=== PATIENT | male | born 1940 | race Caucasian/White ===

== ENCOUNTER 2016-04-03 22:18 | Inpatient (IN) | payer MEDICARE ==
[~2016-04-03 22:18] MED LIST: CIPR-9 PO; LISI-515 PO; LITH300C2 PO; LORA-373 PO; OXYGENTANK NAS.CANULA
[2016-04-03] MEDS ORDERED: SODIUM CHLOR 0.9% 1000 ML INJ 1,000 ML IV ONE ×3 (22:39→23:45)
--- NOTE | 2016-04-03 22:51 | RADRPT ---
EXAM DATE/TIME: 04/03/2016 22:36 [facility] COMPARISON: No previous studies available for comparison. INDICATIONS : Stroke alert; altered mental status. RADIATION DOSE: 56.35 CTDIvol (mGy) This report was called by Dr. Causey to Dr. Gabriel at 10: 50 PM MEDICAL HISTORY : Non-responsive. SURGICAL HISTORY : Non-responsive. ENCOUNTER: Initial ACUITY: 1 day PAIN SCALE: Non-responsive LOCATION: cranial TECHNIQUE: Multiple contiguous axial images were obtained of the head. Using automated exposure control and adj ustment of the mA and/or kV according to patient size, radiation dose was kept as low as reasonably a chievable to obtain optimal diagnostic quality images. FINDINGS: CEREBRUM: The ventricles are normal for age. No evidence of midline shift, mass lesion, hemorrhage or acute in farction. No extra-axial fluid collections are seen. POSTERIOR FOSSA: The cerebellum and brainstem are intact. The 4th ventricle is midline. The cerebellopontine angle i s unremarkable. EXTRACRANIAL: The visualized portion of the orbits is intact. SKULL: The calvaria is intact. No evidence of skull fracture. CONCLUSION: Normal examination for a patient of this age. Harrison Causey MD on April 03, 2016 at 22:48 Board Certified Radiologist. This report was verified electronically.
[2016-04-03 22:52] VITALS: PULSE 77; RESP 18; O2SAT 95
[2016-04-03 23:08] LABS: AUTOMATED NEUTROPHIL # 14.4 TH/MM3 (1.8-7.7); BASOPHIL # 0.2 TH/MM3 (0-0.2); BASOPHIL % 1.3 % (0.0-2.0); EOSINOPHIL # 0.2 TH/MM3 (0-0.4); EOSINOPHIL % 1.4 % (0.0-4.0); HEMATOCRIT 42.8 % (39.0-51.0); HEMO FLAGS DIFF FINAL; LYMPHOCYTE # 1.2 TH/MM3 (1.0-4.8); MEAN CELL VOLUME 97.4 FL (80.0-100.0); MEAN CORPUSCULAR HEMOGLOBIN 31.6 PG (27.0-34.0); MEAN CORPUSCULAR HGB CONC 32.4 % (32.0-36.0); MONO % 4.8 % (0.0-8.0); NEUT % 85.5 % (16.0-70.0); PLATELET COUNT 516 TH/MM3 (150-450); RED BLOOD COUNT 4.39 MIL/MM3 (4.50-5.90); RED CELL DISTRIBUTION WIDTH 15.3 % (11.6-17.2); WHITE BLOOD COUNT 16.9 TH/MM3 (4.0-11.0)
[2016-04-03 23:09] LABS: I-STAT POTASSIUM 5.4 MMOL/L (3.5-4.9)
[2016-04-03 23:33] LABS: APTT (PATIENT) 24.6 SEC (24.3-30.1); PROTHROMBIN TIME - PATIENT 10.6 SEC (9.8-11.6)
--- NOTE | 2016-04-03 23:38 | PD ---
HPI Chief Complaint: Stroke Alert Time Seen by Provider: 22:39 Travel History International Travel<30 days: No Contact w/Intl Traveler<30days: No History of Present Illness HPI The patient arrives as a stroke alert. [facility] developed tremors, sweating palms and a flushed face. He also had a grand mal and responded "yes" when asked if he wanted water. He is unable to suck water through a straw. He was unable to hold a conversation however was able to answer yes and no. Nurse from the facility called the doctor in charge and EMS was activated. Upon arrival to the ER the patient was tremulous generally. EMS notes the patient had a supratherapeutic lithium level obtained 2 days prior. He has been off lithium since then. The patient denies pain in the ER. His NIH stroke scale is considered to be 0 as the presentation is considered to be not in keeping with an acute [employer] infarct or bleed. Time of onset of alleged altered mental status was about 2:45 minutes prior to ER arrival. PFSH Past Medical History Cardiovascular Problems: No Diminished Hearing: No Genitourinary: No Musculoskeletal: No Neurologic: No Psychiatric: Yes (patient states he takes bipolar meds ) Reproductive: No Respiratory: No Social History Alcohol Use: No Tobacco Use: No Substance Use: No Allergies-Medications (Allergen,Severity, Reaction): Coded Allergies: Penicillin (Unverified Adverse Reaction, Mild, 04/04/16) Told since he had polio as a kid and exposed to penicillin multiple times, should not have penicillin later in life. Denies SOB/Rash/Swelling. Reported Meds & Prescriptions Reported Meds & Active Scripts Active Reported Metronidazole 500 Mg Tab 500 Mg PO BID Duoneb (Ipratropium-Albuterol Neb) 0.5-2.5 Mg/3 Ml Neb 1 Nebule INH Q6HR NEB Ciprofloxacin (Ciprofloxacin HCl) 500 Mg Tab 500 Mg PO BID Lisinopril 20 Mg Tab 20 Mg PO DAILY Boissevain Carbonate 300 Mg Tab 300 Mg PO TID ON HOLD due to Levels Tamsulosin (Tamsulosin HCl) 0.4 Mg Cap 0.4 Mg PO HS Robitussin Cough Chest Congestion (Dextromethorphan-Guaifenesin) 10-200 Mg Cap 1 Cap PO Q4H PRN Breo Ellipta Inh (Fluticasone/Vilanterol) 100-25 Mcg/Act Inh 1 Puff INH DAILY Use daily at the same time. Nicoderm CQ Patch (Nicotine) 21 Mg/24 Hr Patch 21 Mg T-DERMAL DAILY Review of Systems Except as stated in HPI: all other systems reviewed are Neg Physical Exam Narrative GENERAL: 75-year-old male, generalized fine tremor involving the facial muscles the extremities both proximally and distally in a symmetric fashion SKIN: Warm and dry. HEAD: Atraumatic. Normocephalic. EYES: Pupils equal and round. No scleral icterus. No injection or drainage. ENT: No nasal bleeding or discharge. Mucous membranes pink and moist. NECK: Trachea midline. No JVD. CARDIOVASCULAR: Regular rate and rhythm. No murmur appreciated. RESPIRATORY: No accessory muscle use. Clear to auscultation. Breath sounds equal bilaterally. GASTROINTESTINAL: Abdomen soft, non-tender, nondistended. Hepatic and splenic margins not palpable. MUSCULOSKELETAL: No obvious deformities. No clubbing. No cyanosis. No edema. NEUROLOGICAL: The patient can read sentences. He can identify objects. He can repeat NIH stroke scale phrases. Initially the patient was unable to elevate the legs. The patient has some difficulty elevating his feet off the bed however has flexed his knees and rolled into the lateral recumbent position upon reassessment. PSYCHIATRIC: Difficult to interpret in the setting of generalized tremor. The patient denies pain and is quite cooperative. Data Data Last Documented VS Vital Signs Date Time Temp Pulse Resp B/P Pulse Ox O2 Delivery O2 Flow Rate FiO2 04/04/16 00:35 84 18 143/67 97 Nasal Cannula [address] Brain W/O Iv Contrast(Rout) (04/03/16 ) Diet Npo (04/04/16 Breakfast) Activity Bed Rest (04/03/16 ) Electrocardiogram (04/03/16 ) I-Stat Creatinine (04/03/16 22:39) I-Stat Profile (04/03/16 22:39) Prothrombin Time / Inr (Pt) (04/03/16 22:39) Act Partial Throm Time (Ptt) (04/03/16 22:39) Complete Blood Count With Diff (04/03/16 22:39) Fibrinogen (04/03/16 22:39) Ua Includes Microscopic (04/03/16 22:39) Type And Screen (04/03/16 22:39) Consult Neurology (04/03/16 ) Blood Glucose (04/03/16 22:39) Ecg Monitoring (04/03/16 22:39) Neuro Checks Q2HX12,Q4H (04/03/16 22:39) Nursing Bedside Swallow Assess .ONCE (04/03/16 22:39) Iv Access Insert/Monitor (04/03/16 22:39) NPO (04/03/16 22:39) Oximetry (04/03/16 22:39) Oxygen Administration (04/03/16 22:39) Sodium Chlor 0.9% 1000 Ml Inj (Ns 1000 M (04/03/16 22:39) Resp Oxygen Shane C Titrat 1-4 L (04/03/16 22:39) Cath For Specimen (04/03/16 22:39) Comprehensive Metabolic Panel (04/03/16 22:47) Boissevain (Li) (04/03/16 22:47) Drug Screen, Random Urine (04/03/16 22:47) Alcohol (Ethanol) (04/03/16 22:47) Call Poison Control (04/03/16 23:01) (Hub Use Only)Inp Phy Cons/Ref (04/03/16 ) Sodium Chlor 0.9% 1000 Ml Inj (Ns 1000 M (04/03/16 23:45) Sodium Chlor 0.9% 1000 Ml Inj (Ns 1000 M (04/03/16 23:45) Urinary Catheter Insert/Apply (04/03/16 23:38) Urinalysis - C+S If Indicated (04/04/16 00:08) Chest, Single Ap (04/04/16 ) Creatine Kinase (Cpk) (04/03/16 22:47) Troponin I (04/03/16 22:47) Arterial Blood Gas (Abg) (04/04/16 ) Basic Metabolic Panel (Bmp) (04/04/16 01:53) Boissevain (Li) (04/04/16 01:54) Admit Order (Ed Use Only) (04/04/16 02:07) Labs Laboratory Tests Test 04/03/16 04/03/16 04/03/16 04/04/16 21:05 22:40 23:50 02:05 Prothrombin Time 10.6 SEC Prothromb Time International 1.0 RATIO Ratio Activated Partial 24.6 SEC Thromboplast Time Fibrinogen 500 mg/dL Bo[place]vain Level 2.0 MEQ/L 1.9 MEQ/L Sodium Level 144 MEQ/L 145 MEQ/L Potassium Level 4.9 MEQ/L 4.5 MEQ/L Chloride Level 114 MEQ/L 115 MEQ/L Carbon Dioxide Level 22.8 MEQ/L 21.8 MEQ/L Anion Gap 7 MEQ/L 8 MEQ/L Blood Urea Nitrogen 39 MG/DL 41 MG/DL Creatinine 2.57 MG/DL 2.46 MG/DL Estimat Glomerular Filtration 25 ML/MIN 26 ML/MIN Rate Random Glucose 106 MG/DL 110 MG/DL Calcium Level 9.8 MG/DL 9.2 MG/DL Total Bilirubin 0.4 MG/DL Aspartate Amino Transf 8 U/L (AST/SGOT) Alanine Aminotransferase 29 U/L (ALT/SGPT) Alkaline Phosphatase 182 U/L Total Creatine Kinase 39 U/L Troponin I LESS THAN 0.02 NG/ML Total Protein 7.9 GM/DL Albumin 3.4 GM/DL Ethyl Alcohol Level LESS THAN 3 MG/DL Blood Type A NEGATIVE Antibody Screen NEGATIVE Blood Bank Comment White Blood Count 16.9 TH/MM3 Red Blood Count 4.39 MIL/MM3 Hemoglobin 13.9 GM/DL Bedside Hemoglobin 13.9 G/DL Hematocrit 42.8 % Bedside Hematocrit 41.0 % Mean Corpuscular Volume 97.4 FL Mean Corpuscular Hemoglobin 31.6 PG Mean Corpuscular Hemoglobin 32.4 % Concent Red Cell Distribution Width 15.3 % Platelet Count 516 TH/MM3 Mean Platelet Volume 8.7 FL Neutrophils (%) (Auto) 85.5 % Lymphocytes (%) (Auto) 7.0 % Monocytes (%) (Auto) 4.8 % Eosinophils (%) (Auto) 1.4 % Basophils (%) (Auto) 1.3 % Neutrophils # (Auto) 14.4 TH/MM3 Lymphocytes # (Auto) 1.2 TH/MM3 Monocytes # (Auto) 0.8 TH/MM3 Eosinophils # (Auto) 0.2 TH/MM3 Basophils # (Auto) 0.2 TH/MM3 CBC Comment DIFF FINAL Differential Comment Bedside Sodium 141 MMOL/L Bedside Potassium 5.4 MMOL/L Bedside Chloride 119 MMOL/L Bedside Blood Urea Nitrogen 54 MG/DL Bedside Creatinine 2.4 MG/DL Bedside Glucose 108 MG/DL Urine Color YELLOW Urine Turbidity CLEAR Urine pH 6.5 Urine Specific [place] 1.009 Urine Protein NEG mg/dL Urine Glucose (UA) NEG mg/dL Urine Ketones NEG mg/dL Urine Occult Blood MOD Urine Nitrite NEG Urine Bilirubin NEG Urine Urobilinogen LESS THAN 2.0 MG/DL Urine Leukocyte Esterase NEG Urine RBC 2 /hpf Urine WBC 2 /hpf Urine Bacteria RARE /hpf Urine Hyaline Casts 7 /lpf Microscopic Urinalysis Comment CULT NOT INDICATED Urine Opiates Screen NEG Urine Barbiturates Screen NEG Urine Amphetamines Screen NEG Urine Benzodiazepines Screen NEG Urine Cocaine Screen NEG Urine Cannabinoids Screen NEG MDM Medical Screen Exam Complete: Yes Emergency Medical Condition: Yes Medical Record Reviewed: Yes Differential Diagnosis Altered mental status due to metabolic abnormality/electrolyte imbalance, polypharmacy/toxicology, possible lithium overdose, infectious state Narrative Course CBC & BMP Diagram 04/03/16 21:05 04/03/16 22:40 04/04/16 02:05 AST 8 Alk Phos 182 Tn < 0.02 Li 2.0 ABG 7.6//18 BE -6.0 d/w poison control. NS started. No focal deficit was identified on initial physical exam. Subsequent physical exams revealed no focal deficit. In this setting stroke is considered less likely. Every 2 hours lithium checks recommended by poison control. 2-3 cc per KG per hour normal saline recommended by poison control. Patient reports marginal improvement after IV hydration. Case d/w Dr Alex. Critical Care Narrative Aggregate critical care time was 35 minutes. Time to perform other separately billable procedures was not included in the critical care time. My time did not include minutes spent treating any other patients simultaneously or on activities that did not directly contribute to the patient's treatment. The services I provided to this patient were to treat and/or prevent clinically significant deterioration that could result in: Cardiopulmonary arrest, permanent organ injury I provided critical care services requiring my management, as noted below: Chart data review, documentation time, medication orders and management, vital sign assessments/reviewing monitor data, ordering and reviewing lab tests, ordering and interpreting/reviewing x-rays and diagnostic studies, care of the patient and discussion of the patient with the admitting physicians.Aggregate critical care Stroke Alert NIHSS NIH Stroke Scale Result: 0 NIHSS Time Completed: 22:42 Thrombolytic Contraindications Contraindications Comment: Etiology considered less likely CVA. Diagnosis Diagnosis: Primary Impression: Boissevain toxicity Qualified Code: T56.891A - Boissevain toxicity, accidental or unintentional, initial encounter Additional Impressions: AIWLDA (acute kidney injury) Altered mental status Qualified Code: R41.82 - Altered mental status, unspecified altered mental status type Admitting Physician Requests: Admit Miguel A Gabriel MD Apr 03, 2016 23:38
[2016-04-04] VITALS (16 sets, daily range): BP systolic 91–152; BP diastolic 44–77; PULSE 72–93; RESP 14–20; TEMP 97.9–98.4; O2SAT 95–98
[2016-04-04 00:18] LABS: BACTERIA, URINE RARE /hpf; BLOOD, URINE MOD (NEG); COMMENT (UR) CULT NOT INDICATED; GLUCOSE,URINE NEG (NEG); HYALINE CAST, URINE 7 /lpf (RARE); KETONE, URINE NEG (NEG); NITRITE,URINE NEG (NEG); PH, URINE 6.5 (5.0-8.5); URINE COLOR YELLOW (YELLW/STRAW)
[2016-04-04 00:25] LABS: AMPHETAMINE, URINE NEG (NEG); BARBITURATES, URINE NEG (NEG); COCAINE, URINE NEG (NEG)
--- NOTE | 2016-04-04 00:53 | RADRPT ---
EXAM DATE/TIME: 04/04/2016 00:25 [facility] COMPARISON: CHEST SINGLE AP, March 14, 2016, 11:37. INDICATIONS : Fever. Stroke Alert. MEDICAL HISTORY : None. SURGICAL HISTORY : None. ENCOUNTER: Initial ACUITY: 1 day PAIN SCORE: Non-responsive. LOCATION: Bilateral chest FINDINGS: A single view of the chest demonstrates the lungs to be symmetrically aerated without evidence of mas s, infiltrate or effusion. The cardiomediastinal contours are unremarkable. Osseous structures are intact. CONCLUSION: The lungs are clear. Mayank Ennis MD on April 04, 2016 at 0:52 Board Certified Radiologist. This report was verified electronically.
[2016-04-04 01:09] LABS: BLOOD UREA NITROGEN 39 MG/DL (7-18); GLOMERULAR FILTRATION RATE 25 ML/MIN (>89)
[2016-04-04 01:10] LABS: ALKALINE PHOSPHATASE 182 U/L (45-117); ALT (GPT) 29 U/L (12-78); AST (GOT) 8 U/L (15-37); POTASSIUM 4.9 MEQ/L (3.5-5.1); SODIUM (NA) 144 MEQ/L (136-145); TOTAL BILIRUBIN ADULT 0.4 MG/DL (0.2-1.0)
[2016-04-04] MEDS ORDERED: IPRASOL INH (01:13)
[2016-04-04] MEDS ORDERED: FLUT1INH INH (01:13)
[2016-04-04] MEDS ORDERED: LITH300T3 PO (01:13)
[2016-04-04] MEDS ORDERED: DEXT1CAP5 PO (01:13)
[2016-04-04] MEDS ORDERED: LISI-515 PO (01:13)
[2016-04-04] MEDS ORDERED: TAMS0.4C4 PO (01:13)
[2016-04-04] MEDS ORDERED: NICO21DI6 T-DERMAL (01:13)
[2016-04-04] MEDS ORDERED: METR500T10 PO (01:13)
[2016-04-04] MEDS ORDERED: CIPR500T2 PO (01:13)
[2016-04-04 02:42] LABS: BICARBONATE 21.8 MEQ/L (21.0-32.0); POTASSIUM 4.5 MEQ/L (3.5-5.1)
[2016-04-04 02:42] LABS: BLOOD GAS HCO3 18 mmol/L (22-26); BLOOD GAS METHEMOGLOBIN 1.8 % (0-2); BLOOD GAS O2 HGB SATURATION 90 % (90-100); BLOOD GAS OXYGEN CONTENT 16.9 Vol % (12.0-20.0); BLOOD GAS PCO2 34 mmHg (38-42); BLOOD GAS PO2 67 mmHG (61-120); BLOOD GAS TOTAL HGB 13.3 G/DL (12.0-16.0); CRITICAL VALUE NO; DRAW SITE RT RADIAL; LITER FLOW 2 L/M; NUMBER OF ARTERIAL PUNCTURES 1; OXYGEN DEVICE NASAL CANNULA; STAT YES; TEMP CORR TO 98.6; ULNAR PULSE PRESENT
[2016-04-04 02:44] LABS: CREATINE KINASE 39 U/L (39-308)
[2016-04-04 02:45] LABS: CHLORIDE 114 MEQ/L (98-107)
[2016-04-04 02:46] LABS: ANION GAP 7 MEQ/L (5-15); BICARBONATE 22.8 MEQ/L (21.0-32.0)
[2016-04-04] MEDS: SODIUM CHLOR 0.9% 1000 ML INJ 1,000 ML IV SCH ×2 (03:38→13:58)
[2016-04-04] MEDS ORDERED: MISCELLANEOUS NURSING INFORMATION XX SCH (03:45)
[2016-04-04] MEDS ORDERED: GLUCAGON 1 MG/ML VIAL OTHER PRN (03:45)
[2016-04-04] MEDS ORDERED: DEXTROSE 50% IN WATER 50 ML VIAL(D50) IV PUSH PRN (03:45)
[2016-04-04] MEDS ORDERED: SODIUM CHLORIDE 0.9% FLUSH 5 ML FLUSH IV FLUSH PRN (03:45)
[2016-04-04] MEDS ORDERED: CHLORHEXIDINE GLUCONATE 2 % 1 PACK (2 CLOTHS) TOP PRN (03:45)
[2016-04-04] MEDS ORDERED: ONDANSETRON HCL 4 MG/2 ML VIAL IV PRN (03:45)
[2016-04-04] MEDS ORDERED: RESP: ALBUTEROL 2.5 MG/IPRATROPIUM 0.5 MG NEB (PRN) INH (03:45)
[2016-04-04] MEDS: CHLORHEXIDINE GLUCONATE 2 % 1 PACK (2 CLOTHS) TOP SCH (04:00)
[2016-04-04] MEDS ORDERED: SODIUM CHLOR 0.9% 1000 ML INJ 1,000 ML IV ONE (04:00)
--- NOTE | 2016-04-04 04:10 | HHI.HP ---
HPI Service Critical Care Medicine Primary Care Physician [facility] Admission Diagnosis AMS, Tremor, Li Toxicity, AWILDA Diagnosis: Travel History International Travel<30 Days: No Contact w/Intl Traveler <30 Da: No History of Present Illness This is an elderly gentleman that presented from a intermediate facility with redness/facial flushing, and tremors. On presentation to the ED,initially the patient was not able to respond to questions or be conversant. He was unable to hold a conversation however was able to answer yes and no. ASIS past medical history is significant for bipolar disorder .Upon arrival to the ER the patient was tremulous. EMS notes the patient had a supratherapeutic lithium level obtained 2 days prior. His lithium placed on hold. Imaging studies and laboratory specimens were obtained. Critical care medicine was consulted for management and treatment. History PFSH Past Medical History Cardiovascular Problems: No Diminished Hearing: No Genitourinary: No Musculoskeletal: No Neurologic: No Psychiatric: Yes (patient states he takes bipolar meds ) Reproductive: No Respiratory: No Social History Alcohol Use: No Tobacco Use: No Substance Use: No Allergies-Medications Allergies-Medications (Allergen,Severity, Reaction): Coded Allergies: Penicillin (Unverified Adverse Reaction, Mild, 03/14/16) Told since he had polio as a kid and exposed to penicillin multiple times, should not have penicillin later in life. Denies SOB/Rash/Swelling. Reported Meds & Prescriptions Reported Meds & Active Scripts Active Lorazepam 0.5 Mg Tab 0.5 Mg PO BID PRN Lisinopril 20 Mg Tab 20 Mg PO DAILY Oxygen tank (Oxygen) 1 Ea Tank 2 Liter RADHA.CANULA CONTINUOUS Oxygen Concentrator Portable Gaseous 2 L/min via Nasal Cannula Continuous For 99 months Cipro (Ciprofloxacin HCl) 500 Mg Tab 500 Mg PO Q12HR Take twice per day for 14 days. No antacids, PPIs, milk or milk products for an hour before or after Cipro. Reported Kennard Carbonate 300 Mg Cap 300 Mg PO TID ROS Review of Systems Except as stated in HPI: all other systems reviewed are Neg Physical Exam Vital Signs Vital Signs Date Time Temp Pulse Resp B/P Pulse Ox O2 Delivery O2 Flow Rate FiO2 04/04/16 02:42 80 18 132/60 98 Nasal Cannula 2 04/04/16 00:35 84 18 143/67 97 Nasal Cannula 2 04/03/16 23:13 79 18 99 Nasal Cannula 2 04/03/16 22:58 98 Nasal Cannula 2 04/03/16 22:52 77 18 95 Nasal Cannula 2 Physical Exam GENERAL: Elderly gentleman lying semirecumbent in bed flushed face and tremors in both upper and lower extremities. SKIN: Hot and dry. HEAD: Atraumatic. Normocephalic. EYES: Pupils equal and round. No scleral icterus. No injection or drainage. ENT: No nasal bleeding or discharge. Mucous membranes pink and moist. NECK: Trachea midline. No JVD. CARDIOVASCULAR: Normal rate, regular rhythm. RESPIRATORY: No accessory muscle use. Clear to auscultation. Breath sounds equal bilaterally. GASTROINTESTINAL: Abdomen soft, non-tender, nondistended. No guarding. MUSCULOSKELETAL: Extremities without clubbing, cyanosis, or edema. No obvious deformities. NEUROLOGICAL: Awake and alert. RASS 0. Fine tremors noted facially, and proximal and distal extremities.No gross focal/sensory deficits. Follows commands in all 4 extremities. Laboratory Laboratory Tests Test 04/03/16 04/03/16 04/03/16 04/04/16 21:05 22:40 23:50 02:05 Prothrombin Time 10.6 Prothromb Time International 1.0 Ratio Activated Partial 24.6 Thromboplast Time Fibrinogen 500 Kenn[place] Level 2.0 1.9 Sodium Level 144 145 Potassium Level 4.9 4.5 Chloride Level 114 115 Carbon Dioxide Level 22.8 21.8 Anion Gap 7 8 Blood Urea Nitrogen 39 41 Creatinine 2.57 2.46 Estimat Glomerular Filtration 25 26 Rate Random Glucose 106 110 Calcium Level 9.8 9.2 Total Bilirubin 0.4 Aspartate Amino Transf 8 (AST/SGOT) Alanine Aminotransferase 29 (ALT/SGPT) Alkaline Phosphatase 182 Total Creatine Kinase 39 Troponin I LESS THAN 0.02 Total Protein 7.9 Albumin 3.4 Ethyl Alcohol Level LESS THAN 3 Blood Type A NEGATIVE Antibody Screen NEGATIVE Blood Bank Comment White Blood Count 16.9 Red Blood Count 4.39 Hemoglobin 13.9 Bedside Hemoglobin 13.9 Hematocrit 42.8 Bedside Hematocrit 41.0 Mean Corpuscular Volume 97.4 Mean Corpuscular Hemoglobin 31.6 Mean Corpuscular Hemoglobin 32.4 Concent Red Cell Distribution Width 15.3 Platelet Count 516 Mean Platelet Volume 8.7 Neutrophils (%) (Auto) 85.5 Lymphocytes (%) (Auto) 7.0 Monocytes (%) (Auto) 4.8 Eosinophils (%) (Auto) 1.4 Basophils (%) (Auto) 1.3 Neutrophils # (Auto) 14.4 Lymphocytes # (Auto) 1.2 Monocytes # (Auto) 0.8 Eosinophils # (Auto) 0.2 Basophils # (Auto) 0.2 CBC Comment DIFF FINAL Differential Comment Bedside Sodium 141 Bedside Potassium 5.4 Bedside Chloride 119 Bedside Blood Urea Nitrogen 54 Bedside Creatinine 2.4 Bedside Glucose 108 Urine Color YELLOW Urine Turbidity CLEAR Urine pH 6.5 Urine Specific [place] 1.009 Urine Protein NEG Urine Glucose (UA) NEG Urine Ketones NEG Urine Occult Blood MOD Urine Nitrite NEG Urine Bilirubin NEG Urine Urobilinogen LESS THAN 2.0 Urine Leukocyte Esterase NEG Urine RBC 2 Urine WBC 2 Urine Bacteria RARE Urine Hyaline Casts 7 Microscopic Urinalysis Comment CULT NOT INDICATED Urine Opiates Screen NEG Urine Barbiturates Screen NEG Urine Amphetamines Screen NEG Urine Benzodiazepines Screen NEG Urine Cocaine Screen NEG Urine Cannabinoids Screen NEG Test 04/04/16 02:28 Blood Gas Puncture Site RT RADIAL Blood Gas Patient Temperature 98.6 Blood Gas HCO3 18 Blood Gas Base Excess -6.0 Blood Gas Oxygen Saturation 90 Arterial Blood pH 7.36 Arterial Blood Partial 34 Pressure CO2 Arterial Blood Partial 67 Pressure O2 Arterial Blood Oxygen Content 16.9 Arterial Blood 2.0 Carboxyhemoglobin Arterial Blood Methemoglobin 1.8 Blood Gas Hemoglobin 13.3 Oxygen Delivery Device NASAL CANNULA Blood Gas Liter Flow 2 Result Diagram: 04/03/16 2240 04/04/16 0205 Imaging Last Impressions Head CT 04/03/16 0000 Signed Impressions: Service Date/Time: Sunday, April 03, 2016 22:36 - CONCLUSION: Normal examination for a patient of this age. Harrison Causey MD Septic Shock Reassessment Heart: Regular rate and rhythm Lungs: Clear Skin: Warm Peripheral Pulses: Bounding Right Radial Bounding Left Radial Bounding Right Dorsalis Pedis Bounding Left Dorsalis Pedis Capillary Refill: Brisk Assessment and Plan Assessment and Plan This is an elderly gentleman living in a intermediate facility presents with neurological changes to include fine tremors in the proximal and distal extremities without focality. Patient has signs of dehydration and hasn't been noted to have an elevated lithium level. Neurologic: Bipolar disorder Kennard toxicity Encephalopathy-toxic -Patient bolused with 2 L of normal saline, with improvement in communication, more conversant. -Poison control notified, repeat lithium levels every 2 hours.Kennard 2-->1.9 -Follow-up repeat lithium level -Obtain Tylenol, ASA [id number] results -Continue IV hydration Respiratory: No acute issues -Maintain O2 sat greater than 92%, currently on 2 L/m nasal cannula O2 sat 97% -Bronchodilators PRN Cardiovascular: -No acute issues. Maintain MAP greater than 65mmHg -Serial EKG-monitor QTc interval prolongation -Normotensive at this time Renal: Dehydration Renal insufficiency -Patient bolused with 3 L normal saline -IVF 0.9NaCL @ 100cc/hr, monitor for signs of nephrogenic DI -Creatinine 2.57, BUN 39 elevated secondary to dehydration -Maintain Allison -Hematuria noted -- Strict I/Os FEN/GI: -Monitor BMP -Maintain NPO status -Formal swallow study -Bowel regimen -Zofran for nausea Heme/ID: -Obtain blood and urine culture -Obtain lactate level Endocrine: -Glucose monitoring per ICU protocol -- SSI Prophylaxis: GI Prophylaxis Protonix DVT Prophylaxis -- SCDs Hematuria noted no pharmacological prophylaxis at this time Lines: Peripheral IVs 2. Central line if indicated Dispo: This patient remains critically ill with one or more organ systems which are or may become a threat to life. I have spent in excess of 57 minutes discontinuously in the care and management of this patient. This time is exclusive of procedures, and includes, but is not limited to, evaluation of the patient, review of the medical record, discussions with family, consultants, nursing staff, or respiratory therapy, and documentation in the medical record. Code Status Full code Discussed Condition With ED RN at bedside Prabha Alex MD Apr 04, 2016 04:10
[2016-04-04] MEDS: INSULIN ASPART SUPPLEMENTAL SCALE SQ SCH ×4 (06:35→20:21)
[2016-04-04] MEDS: DOCUSATE SODIUM 100 MG CAP PO SCH ×2 (07:29→20:21)
[2016-04-04] MEDS: SODIUM CHLORIDE 0.9% FLUSH 5 ML FLUSH IV FLUSH SCH ×2 (07:29→20:21)
[2016-04-04] MEDS: PANTOPRAZOLE SODIUM 40 MG VIAL IV SCH (09:06)
[2016-04-04] MEDS ORDERED: PRAV40TA2 PO (10:00)
[2016-04-04] MEDS ORDERED: AMLO5TAB2 PO (10:00)
[2016-04-04] MEDS ORDERED: LORA1TAB12 PO (10:00)
[2016-04-04] MEDS ORDERED: OLAN5TAB PO (10:00)
[2016-04-04] MEDS ORDERED: TRIH2 PO (10:00)
--- NOTE | 2016-04-04 14:13 | EKG ---
Date Performed: 04/04/2016 Time Performed: 06:27:13 PTAGE: 75 years EKG: Sinus rhythm MODERATE INTRAVENTRICULAR CONDUCTION DELAY Nonspecific ST and T wave abnormalities BORDERLINE ECG PREVIOUS TRACING : 04/04/2016 02.14 Since previous tracing, no significant change noted DOCTOR: Mikhail Gabriel Interpretating Date/Time 04/04/2016 14:13:01
--- NOTE | 2016-04-04 14:31 | EKG ---
Date Performed: 04/04/2016 Time Performed: 02:14:29 PTAGE: 75 years EKG: Sinus rhythm LOW QRS VOLTAGE IN EXTREMITY LEADS NONSPECIFIC T-WAVE ABNORMALITY BORDERLINE ECG NO PREVIOUS TRACING Since previous tracing, no significant change noted DOCTOR: Mikhail Gabriel Interpretating Date/Time 04/04/2016 14:31:24
--- NOTE | 2016-04-04 15:27 | PD.CONS ---
Provisional Diagnosis Admission Date Apr 04, 2016 at 02:09 [place]. 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 Patient has a history of bipolar disorder initially seen here back in 2001. At the present time patient is lying quietly in his bed in room 246 a E is somewhat sedated but arousable and will answer questions with brief 1 or 2 word answers is dissected as to place time and situation though it doestake. He denies suicidality or denies voices. I agree with withholding lithium at this time. I would agree with supportive therapy until the patient's lithium level is lowered. At that time if the patient medically cleared, I would recommend he be returned to the snf. To allow the medical staff there slowly assess his need for mood stabilizer less restrictive setting. I see no indication at the present time of the need for psychiatric hospitalization. Thanks for consult will follow on a when necessary basis either by myself by Dr. Griggs Review of Systems ROS Limitations: Altered Mental Status Except as stated in HPI: all other systems reviewed are Neg Past Family Social History Coded Allergies: Penicillin (Unverified Adverse Reaction, Mild, 04/04/16) Told since he had polio as a kid and exposed to penicillin multiple times, should not have penicillin later in life. Denies SOB/Rash/Swelling. Past Medical History See medical assessments Reported Medications Lorazepam 1 Mg Tab1 Mg PO DAILY PRN (ANXIETY) Ref 0 04/04/16 Trihexyphenidyl 2 Mg Tab2 Mg PO BID #60 TAB Ref 0 04/04/16 Olanzapine 5 Mg Tab5 Mg PO DAILY #30 TAB Ref 0 04/04/16 Pravastatin 40 Mg Tab40 Mg PO DAILY #30 TAB Ref 0 04/04/16 Amlodipine 5 Mg Tab5 Mg PO DAILY #30 TAB Ref 0 04/04/16 Ipratropium-Albuterol Neb (Duoneb)0.5-2.5 Mg/3 Ml Neb1 Nebule INH Q6HR NEB # 120 NEBULE Ref 0 04/04/16 Bement Carbonate 300 Mg [id number] Mg PO TID Ref 0 ON HOLD due to Levels 04/04/16 Tamsulosin 0.4 Mg Cap0.4 Mg PO HS #30 CAP Ref 0 04/04/16 Nicotine Patch (Nicoderm CQ Patch)21 Mg/24 Hr Patch21 Mg T-DERMAL DAILY #30 PATCH Ref 0 04/04/16 Discontinued Reported Medications Metronidazole 500 Mg Hbn500 Mg PO BID Ref 0 04/04/16 Ciprofloxacin 500 Mg Ryh586 Mg PO BID Ref 0 04/04/16 Lisinopril 20 Mg Tab20 Mg PO DAILY #30 TAB Ref 0 04/04/16 Dextromethorphan-Guaifenesin (Robitussin Cough Chest Congestion)10-200 Mg Cap1 Cap PO Q4H PRN (CHEST CONGESTION AND/OR COUGH) Ref 0 04/04/16 Fluticasone-Vilanterol Inh (Breo Ellipta Inh)100-25 Mcg/Act Inh1 Puff INH DAILY #1 INHALER Ref 0 Use daily at the same time. 04/04/16 Current Medications Medications (Trade) Dose Ordered Sig/Michael Route Start Time Stop Time Status Last Admin (NS 1000 ml Inj) 1,000 ml @ 100 mls/hr Q10H IV 04/04/16 03:38 04/04/16 13:58 (NS Flush) 2 ml UNSCH PRN IV FLUSH 04/04/16 03:45 (NS Flush) 2 ml BID IV FLUSH 04/04/16 09:00 (Protonix Inj) 40 mg DAILY IV 04/04/16 09:00 04/04/16 09:06 (Zofran Inj) 4 mg Q6H PRN IV 04/04/16 03:45 (Colace) 100 mg BID PO 04/04/16 09:00 Miscellaneous Information 1 Q361D XX 04/04/16 03:45 (Chlorhexidine 2% Cloth) 3 pack Taper DAILY@04 TOP 04/04/16 04:00 03/31/17 03:59 (Chlorhexidine 2% Cloth) 3 pack UNSCH PRN TOP 04/04/16 03:45 (D50w (Vial) Inj) 25 ml UNSCH PRN IV PUSH 04/04/16 03:45 (Glucagon Inj) 1 mg UNSCH PRN OTHER 04/04/16 03:45 Family History Unknown at this time Social History Lives in snf long history mental health issues Patient's Strengths (min. 2) Patient cooperative calm Physical Exam Please see medical assessments Vital Signs Vital Signs Date Time Temp Pulse Resp B/P Pulse Ox O2 Delivery O2 Flow Rate FiO2 04/04/16 12:00 73 14 120/60 97 Nasal Cannula 2 Mental Status Examination Stated drowsy white male appears older than stated age with no eye contact very poor brief responses Appearance Somewhat disheveled Speech: Other (very brief and minimal) Orientation: Person Memory: Impaired (describe) Thought Process: Other (difficult to ascertain due to his altered mental status ) Thought Content: Other (difficult to ascertain due to altered mental status) Hallucination Type: None Attention and Concentration: Other (difficult to assess due to altered mental status) Suicidal Ideation: No Previous Suicide Attempts: No Homicidal Ideation: No Previous Homicide Attempts: No Insight: Poor Judgement: Unrealistic Affect: Other (decreased range intensity) Mood: Other (really restricted) Motor Activity: Abnormal gait-specify (patient in bed) Assessment & Plan Problem List: (1) Bement toxicity ICD Code: T56.891A (2) Delirium due to another medical condition ICD Code: F05 Assessment & Plan Estimated LOS: days determined by medical condition. It is okay by psych for return to snf once he is medically cleared and stable. I have no recommendations for medications at this time though this could be further assessed by the medical services in the snf Discharge Planning See above Problem Qualifiers (1) Bement toxicity: Qualified Code: T56.891A - Bement toxicity, accidental or unintentional, initial encounter Arsenio Sahni MD Apr 04, 2016 15:27
[2016-04-04 16:52] LABS: FREE T4 0.96 NG/DL (0.76-1.46); SODIUM (NA) 149 MEQ/L (136-145)
[2016-04-04 16:53] LABS: ACETAMINOPHEN LESS THAN 2.0 MCG/ML (10.0-30.0)
[2016-04-04] MEDS ORDERED: DEXT 5%-NACL 0.9% 1000 ML INJ 1,000 ML IV SCH (17:00)
--- NOTE | 2016-04-04 20:50 | MB ---
cc: KANU SERVIN M.D. DATE OF CONSULTATION: 04/04/2016. REASON FOR CONSULTATION: Stroke alert HISTORY OF PRESENT ILLNESS: Mr. Sultana is a 75-year-old man who presented to the emergency room yesterday evening as a stroke alert. He was brought over from the halfway after he developed tremors, sweating of the palms, flushing of the face and appeared to have a possible seizure but afterwards was able to answer questions appropriately. He had no focal deficits at the time. Prior to presentation, his lithium level was high, so that was on hold. His CT yesterday of the brain was normal. I discussed the case with Dr. Gabriel in the emergency room. There were no focal deficits. There were no definitive signs of stroke. It was felt that this is mainly a metabolic encephalopathy. Therefore, I felt the patient was not a candidate for thrombolytic therapy. Today he is doing much better and is more alert. PAST MEDICAL HISTORY: His past medical history is remarkable for: 1. Bipolar disorder. MEDICATIONS: His medications were: 1. Metronidazole. 2. DuoNeb. 3. Ciprofloxacin. 4. Lisinopril. 5. Swartz, which is on hold. 6. Tamsulosin. 7. Robitussin. 8. Brio. 9. Ellipta. 10. Nicoderm patch. ALLERGIES: PENICILLIN. NEUROLOGICAL EXAMINATION: VITAL SIGNS: Vital signs reveal a blood pressure of 162/77, pulse is 82, respirations are 20, temperature 97 degrees. HIGHER CORTICAL FUNCTIONS: He is arousable. He is oriented x2. He has poor recall. He has some confusion. He follows simple commands. Speech is dysarthric. CRANIAL NERVES: Cranial nerves intact. MOTOR: Motor exam shows 5/5 strength of all groups in both upper and lower extremities. There is no drift. Fine motor skills are normal. REFLEXES: Reflexes are 2+ symmetric. IMAGING STUDIES: CT of the brain: No acute intracranial change is present. LABORATORY DATA: The white count is 16,900, hemoglobin 13.9, hematocrit 42%, platelets 516,000. PT 10.6, INR 1, APTT 24.6. Sodium is 145, potassium 4.5, chloride 115, CO2 21.8. IMPRESSION: Probable metabolic encephalopathy. No definite evidence of stroke; therefore, he was not a candidate for tPA. RECOMMENDATIONS: I would like to proceed with further evaluation with an EEG to rule out any type of seizure disorder. Also MRI of the brain. MD AMBROCIO Donahue/ANGÉLICA /5:27 PM /8:39 PM
[2016-04-05] VITALS (26 sets, daily range): BP systolic 100–157; BP diastolic 55–78; PULSE 61–82; RESP 14–18; TEMP 98.6–99.2; O2SAT 94–97
[2016-04-05] MEDS ORDERED: DEXTROSE 5%-NACL 0.225% INJ 1,000 ML IV SCH (00:15)
[2016-04-05 02:57] LABS: BICARBONATE 19.7 MEQ/L (21.0-32.0); POTASSIUM 4.7 MEQ/L (3.5-5.1)
[2016-04-05] MEDS: CHLORHEXIDINE GLUCONATE 2 % 1 PACK (2 CLOTHS) TOP SCH (04:00)
[2016-04-05 04:26] LABS: AUTOMATED NEUTROPHIL # 12.5 TH/MM3 (1.8-7.7); BASOPHIL # 0.2 TH/MM3 (0-0.2); EOSINOPHIL # 0.4 TH/MM3 (0-0.4); EOSINOPHIL % 2.5 % (0.0-4.0); HEMATOCRIT 37.7 % (39.0-51.0); HEMO FLAGS DIFF FINAL; LYMPH % 7.6 % (9.0-44.0); LYMPHOCYTE # 1.1 TH/MM3 (1.0-4.8); MEAN CELL VOLUME 97.8 FL (80.0-100.0); MEAN CORPUSCULAR HEMOGLOBIN 31.5 PG (27.0-34.0); MEAN CORPUSCULAR HGB CONC 32.2 % (32.0-36.0); MONO % 5.4 % (0.0-8.0); NEUT % 83.5 % (16.0-70.0); PLATELET COUNT 424 TH/MM3 (150-450); RED BLOOD COUNT 3.85 MIL/MM3 (4.50-5.90); RED CELL DISTRIBUTION WIDTH 15.2 % (11.6-17.2)
[2016-04-05 05:02] LABS: BICARBONATE 20.1 MEQ/L (21.0-32.0); MAGNESIUM 2.6 MG/DL (1.5-2.5); POTASSIUM 4.6 MEQ/L (3.5-5.1)
[2016-04-05] MEDS: DEXTROSE 5% IN WATE 1000ML INJ 1,000 ML IV SCH ×3 (05:45→19:22)
[2016-04-05] MEDS: INSULIN ASPART SUPPLEMENTAL SCALE SQ SCH ×2 (05:45→11:00)
[2016-04-05] MEDS: SODIUM CHLORIDE 0.9% FLUSH 5 ML FLUSH IV FLUSH SCH ×2 (08:44→19:23)
[2016-04-05] MEDS: PANTOPRAZOLE SODIUM 40 MG VIAL IV SCH (08:44)
[2016-04-05] MEDS: DOCUSATE SODIUM 100 MG CAP PO SCH ×2 (08:44→19:23)
--- NOTE | 2016-04-05 12:57 | HHI.PR ---
Subjective Remarks The patient was resting in bed. He was minimally verbal. He was confused. He was unable to say where he was or what year it was. He seemed to have difficulty talking. Discussed with nursing. Objective Vitals Vital Signs Date Time Temp Pulse Resp B/P Pulse Ox O2 Delivery O2 Flow Rate FiO2 04/05/16 12:00 98.8 72 16 151/74 96 04/05/16 12:00 80 04/05/16 10:27 96 Nasal Cannula 2.00 04/05/16 08:00 68 04/05/16 08:00 98.6 74 14 154/78 96 04/05/16 07:31 Nasal Cannula 2.00 04/05/16 06:00 73 04/05/16 05:00 71 04/05/16 04:00 98.7 72 18 150/70 97 04/05/16 04:00 Nasal Cannula 2.00 04/05/16 04:00 72 04/05/16 03:00 74 04/05/16 02:00 70 04/05/16 01:00 72 04/05/16 00:00 74 04/04/16 23:37 Nasal Cannula 2.00 04/04/16 23:37 98.4 74 18 133/70 97 04/04/16 23:00 77 04/04/16 22:00 79 04/04/16 21:00 82 04/04/16 20:00 Nasal Cannula 2.00 04/04/16 20:00 78 04/04/16 20:00 98.2 78 20 131/74 98 04/04/16 18:00 81 04/04/16 17:00 88 04/04/16 16:00 93 04/04/16 15:11 97.9 82 20 152/77 98 04/04/16 15:00 80 I/O 04/04/16 04/04/16 04/04/16 04/05/16 04/05/16 04/05/16 07:00 15:00 23:00 07:00 15:00 23:00 Intake Total 211 ml 1000 ml Output Total 1100 ml 550 ml 1600 ml Balance -1100 ml -339 ml -600 ml Intake Oral 0 ml IV Total 211 ml 1000 ml Output Urine Total 1100 ml 550 ml 1600 ml # Voids 0 # Bowel Movements 1 0 Result Diagram: 04/05/16 0410 04/05/16 1046 Imaging Last Impressions Chest X-Ray 04/04/16 0000 Signed Impressions: Service Date/Time: Monday, April 04, 2016 00:25 - CONCLUSION: The lungs are clear. Mayank Ennis MD Head CT 04/03/16 0000 Signed Impressions: Service Date/Time: Sunday, April 03, 2016 22:36 - CONCLUSION: Normal examination for a patient of this age. Harrison Causey MD Objective Remarks GENERAL: Elderly gentleman resting in bed. SKIN: Warm and dry. HEAD: Atraumatic. Normocephalic. EYES: Pupils equal and round. No scleral icterus. No injection or drainage. ENT: No nasal bleeding. Oral thrush noted. NECK: Trachea midline. No JVD. CARDIOVASCULAR: Normal rate, regular rhythm. RESPIRATORY: No accessory muscle use. Clear to auscultation. Breath sounds equal bilaterally. GASTROINTESTINAL: Abdomen soft, non-tender, nondistended. No guarding. MUSCULOSKELETAL: Left hand is bandaged. Extremities without clubbing, cyanosis, or edema. No obvious deformities. NEUROLOGICAL: Awake and alert. Confused. Unable to communicate verbally at this time. Moving all extremities. Medications and IVs Current Medications Medications (Trade) Dose Ordered Sig/Michael Route Start Time Stop Time Status Last Admin (NS Flush) 2 ml UNSCH PRN IV FLUSH 04/04/16 03:45 (NS Flush) 2 ml BID IV FLUSH 04/04/16 09:00 04/05/16 08:44 (Protonix Inj) 40 mg DAILY IV 04/04/16 09:00 04/05/16 08:44 (Zofran Inj) 4 mg Q6H PRN IV 04/04/16 03:45 (Colace) 100 mg BID PO 04/04/16 09:00 Miscellaneous Information 1 Q361D XX 04/04/16 03:45 (Chlorhexidine 2% Cloth) 3 pack Taper DAILY@04 TOP 04/04/16 04:00 03/31/17 03:59 04/05/16 04:00 (Chlorhexidine 2% Cloth) 3 pack UNSCH PRN TOP 04/04/16 03:45 (D50w (Vial) Inj) 25 ml UNSCH PRN IV PUSH 04/04/16 03:45 Glucagon 1 mg 1 mg UNSCH PRN OTHER 04/04/16 03:45 (D5W 1000 ml Inj) 1,000 ml @ 150 mls/hr Q6H40M IV 04/05/16 05:45 04/05/16 05:45 A/P Assessment and Plan [place] toxicity/ metabolic encephalopathy This is an elderly gentleman living in a residential facility who presents with neurological changes to include fine tremors in the proximal and distal extremities without focality. Patient has signs of dehydration. [place] level 2 on arrival. He has a history of Bipolar disorder. Poison control was contacted. Neurology and psychiatry consults appreciated. TSH WNL. Not found to be hypoglycemic. May be s/t seizure or CVA. - Continue IV hydration. - EEG and MRI of the brain per neuro. - PT/OT/ST. - check vitamin B12 level. - hold all sedating meds at this time. Renal insufficiency/ hypernatremia The pt presented with lithium toxicity. Creatinine has improved but pt has hypernatremia. - change fluid to D5W. - follow BMP. - avoid nephrotoxic agents. - nephrology consult in AM if does not continue to improve. Left hand wound From a dog bite. Previously treated per ID. Culture found to be growing AFB . Has leukocytosis. - infectious disease consult pending. Oral thrush Noted on exam. He has had recent antibiotics. - fluconazole started 04/05. - ID consult pending. PPx: SCDs; PPI. Discharge Planning Awaiting clinical improvement. Erickson Cordova DO Apr 05, 2016 12:57
--- NOTE | 2016-04-05 14:48 | MB ---
cc: ANAM RUSSELL MD DATE OF CONSULTATION: . REASON FOR CONSULTATION: Positive AFB reported from left hand dog bite culture wound obtained on 03/14/2016. REQUESTING PHYSICIAN: Dr. Toney Yuen. HISTORY OF PRESENT ILLNESS: This is a 75-year-old white male who was recently discharged from this facility on March 17, 2016. The patient was treated for left hand cellulitis and dog bite injury. He was discharged on oral antibiotics. The patient was readmitted to the hospital again from a long term facility with altered mental status and acute kidney injury and he was also admitted as a stroke alert. The patient reportedly developed sweaty palms and flushed face and tremors. He does not verbalize. He is laying in bed currently and is in no acute distress. Information is obtained from the medical record. The patient is being evaluated by neurology as well. The previous culture from the wound of the left hand grew Pasteurella multocida Penicillium species. The culture was also sent for AFB and is positive for AFB but the identity of the organism is pending. This is the reason why this consultation is requested. The patient is afebrile. He is in no acute distress. He has a dressing on the hand on the left side and a dried healed wound with the skin having come together where the laceration wound was located at the dorsum of the hand. The patient received ciprofloxacin up until this admission. PAST MEDICAL HISTORY: 1. Bipolar disease. 2. Hypertension. ALLERGIES: PENICILLIN. MEDICATIONS: 1. Norvasc. 2. Pravachol. 3. Fluconazole. 4. Flomax. 5. Protonix. 6. Colace. SOCIAL HISTORY: No tobacco, no alcohol. No illicit drugs. FAMILY HISTORY: Noncontributory. REVIEW OF SYSTEMS: Difficult to obtain. The patient answers "no" to all questions of a ten-point review. FAMILY HISTORY: Noncontributory. PHYSICAL EXAMINATION: GENERAL: This is a thin female who is in no acute distress. He is awake and appears alert but not verbalizing. VITAL SIGNS: The vital signs include temperature of 98 degrees, blood pressure 151/74, respirations 16, heart rate 72. HEAD, EYES, EARS, NOSE, THROAT: The head is atraumatic. No scalp tenderness. Extraocular movements grossly intact. Pupils are reactive to light and have no icterus. Oropharynx with positive thrush. NECK: The neck is supple without adenopathy or swelling. LUNGS: Clear breath sounds bilaterally. HEART: Regular S1 and S2 without audible murmurs. ABDOMEN: Flat, soft, nontender. Positive bowel sounds. RECTAL: Not performed. EXTREMITIES: No clubbing or cyanosis. The left hand has a wound which is well-healed and dry. No visible erythema or swelling. The rest of the extremities have no clubbing, cyanosis or edema. SKIN: No rash. NEUROLOGIC: Difficult to assess. PSYCHIATRIC: The patient is calm. LABORATORY DATA: WBCs 15.0, platelet count 420,000, 83% neutrophils, hemoglobin 12.1. Creatinine 1.93, BUN 30, sodium 152, estimated GFR of 34. IMPRESSION: Healed wound of the left hand in a patient who is status post bite injury and has previous culture with Pasteurella. Culture now shows positive for AFB. Patient is status post treatment with ciprofloxacin and has been receiving rabies vaccination because the patient was bitten by a stray dog. 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 I do not think it is necessary to continue to treat the patient with any antibiotics for the AFB on the culture. However, the final culture can be followed and if the wound opens up or if he develops problems with non healing of the hand, consideration can be made for including coverage for AFB on future treatment if necessary. The patient has thrush and has been started on fluconazole and that can be continued to treat the oral thrush. Thank you this consultation. Anam Russell MD FD/ANGÉLICA /1:55 PM /2:31 PM SHERRY
[2016-04-05] MEDS: levETIRAcetam 500 MG/NS 100 ML IV SCH ×4 (14:49→19:22)
[2016-04-05] MEDS ORDERED: levETIRAcetam 500MG PREMIX INJ 100 ML IV SCH (15:00)
[2016-04-05] MEDS ORDERED: FLUCONAZOLE 200 MG PREMIX BAG 100 ML IV ONE (15:00)
--- NOTE | 2016-04-05 16:04 | RADRPT ---
EXAM DATE/TIME: 04/05/2016 15:28 [facility] COMPARISON: No previous studies available for comparison. INDICATIONS : Altered mental status. MEDICAL HISTORY : Hypertension. SURGICAL HISTORY : None. ENCOUNTER: Initial ACUITY: 1 day PAIN SCORE: 0/10 LOCATION: cranial TECHNIQUE: Multiplanar, multisequence MRI of the brain was performed without contrast. FINDINGS: CEREBRUM: Mild cerebral atrophy. No evidence of midline shift, mass lesion, hemorrhage or acute infarction. No extraaxial fluid collections are seen. The pituitary gland and suprasellar cistern are normal in co nfiguration. WHITE MATTER: No significant signal abnormalities are seen in the white matter. POSTERIOR FOSSA: The cerebellum and brainstem are intact. The 4th ventricle is midline. The cerebellopontine angle is unremarkable. The cerebellar tonsils are normal in position. DIFFUSION IMAGING: No focal areas of restricted diffusion are seen. No evidence of acute infarction. EXTRACRANIAL: The visualized portions of the orbits and paranasal sinuses are unremarkable. CONCLUSION: 1. Mild cerebral atrophy. 2. No acute infarct, acute hemorrhage, mass effect or extra-axial fluid collections. Donald Mcgraw MD on April 05, 2016 at 15:59 Board Certified Radiologist. This report was verified electronically.
[2016-04-05] MEDS: TAMSULOSIN HCL 0.4 MG CAP PO SCH (19:23)
[2016-04-05] MEDS ORDERED: TRIHEXYPHENIDYL HCL 2 MG TAB PO SCH (21:00)
[2016-04-05 23:56] LABS: SODIUM (NA) 145 MEQ/L (136-145)
[2016-04-06] VITALS (26 sets, daily range): BP systolic 116–139; BP diastolic 54–72; PULSE 56–73; RESP 18–20; TEMP 97.5–98.9; O2SAT 94–97
[2016-04-06] MEDS: DEXTROSE 5% IN WATE 1000ML INJ 1,000 ML IV SCH ×5 (03:11→22:47)
[2016-04-06] MEDS: levETIRAcetam 500 MG/NS 100 ML IV SCH ×8 (03:11→20:49)
[2016-04-06 03:40] LABS: AUTOMATED NEUTROPHIL # 11.6 TH/MM3 (1.8-7.7); BASOPHIL % 0.2 % (0.0-2.0); EOSINOPHIL # 0.6 TH/MM3 (0-0.4); EOSINOPHIL % 3.8 % (0.0-4.0); HEMO FLAGS DIFF FINAL; LYMPH % 11.3 % (9.0-44.0); LYMPHOCYTE # 1.6 TH/MM3 (1.0-4.8); MEAN CELL VOLUME 96.9 FL (80.0-100.0); MEAN CORPUSCULAR HEMOGLOBIN 31.1 PG (27.0-34.0); MEAN CORPUSCULAR HGB CONC 32.1 % (32.0-36.0); MONO % 4.9 % (0.0-8.0); NEUT % 79.8 % (16.0-70.0); PLATELET COUNT 345 TH/MM3 (150-450); RED CELL DISTRIBUTION WIDTH 14.9 % (11.6-17.2); WHITE BLOOD COUNT 14.5 TH/MM3 (4.0-11.0)
[2016-04-06 04:02] LABS: BICARBONATE 22.3 MEQ/L (21.0-32.0)
[2016-04-06] MEDS: PRAVASTATIN SOD 40 MG TAB PO SCH (09:00)
[2016-04-06] MEDS: DOCUSATE SODIUM 100 MG CAP PO SCH ×2 (09:00→20:49)
[2016-04-06] MEDS: amLODIPine BESYLATE 5 MG TAB PO SCH (09:00)
--- NOTE | 2016-04-06 09:37 | HHI.PR ---
Subjective Remarks The patient was awake and alert. He was responding to questions appropriately. He had family at the bedside. He had no acute complaints. He denied any pain or difficulty breathing. Discussed with nursing. Objective Vitals Vital Signs Date Time Temp Pulse Resp B/P Pulse Ox O2 Delivery O2 Flow Rate FiO2 04/06/16 08:06 94 Nasal Cannula 2.00 04/06/16 06:00 64 04/06/16 05:00 63 04/06/16 04:00 Nasal Cannula 2.00 04/06/16 04:00 61 04/06/16 04:00 98.9 61 18 130/63 95 04/06/16 03:00 60 04/06/16 02:00 64 04/06/16 01:00 63 04/06/16 00:00 71 04/05/16 23:29 Nasal Cannula 2.00 04/05/16 23:29 98.6 61 18 100/56 94 04/05/16 23:00 71 04/05/16 22:00 67 04/05/16 21:00 69 04/05/16 20:00 Nasal Cannula 2.00 04/05/16 20:00 99.0 65 18 113/55 97 04/05/16 20:00 65 04/05/16 18:19 97 Nasal Cannula 2.00 04/05/16 18:00 82 04/05/16 17:00 79 04/05/16 16:00 99.2 67 16 157/66 97 04/05/16 16:00 80 04/05/16 15:00 68 04/05/16 14:00 69 04/05/16 13:00 67 04/05/16 12:00 98.8 72 16 151/74 96 04/05/16 12:00 80 04/05/16 11:00 74 04/05/16 10:27 96 Nasal Cannula 2.00 04/05/16 10:00 77 I/O 04/05/16 04/05/16 04/05/16 04/06/16 04/06/16 04/06/16 07:00 15:00 23:00 07:00 15:00 23:00 Intake Total 1000 ml 856 ml 1700 ml Output Total 1600 ml 1050 ml 1100 ml Balance -600 ml -194 ml 600 ml Intake Oral 0 ml 0 ml 0 ml IV Total 1000 ml 856 ml 1700 ml Output Urine Total 1600 ml 1050 ml 1100 ml # Bowel Movements 0 0 0 Result Diagram: 04/06/16 0308 04/06/16 0308 Imaging Last Impressions Brain MRI 04/05/16 0000 Signed Impressions: Service Date/Time: Tuesday, April 05, 2016 15:28 - CONCLUSION: 1. Mild cerebral atrophy. 2. No acute infarct, acute hemorrhage, mass effect or extra-axial fluid collections. Donald Mcgraw MD Chest X-Ray 04/04/16 0000 Signed Impressions: Service Date/Time: Monday, April 04, 2016 00:25 - CONCLUSION: The lungs are clear. Mayank Ennis MD Head CT 04/03/16 0000 Signed Impressions: Service Date/Time: Sunday, April 03, 2016 22:36 - CONCLUSION: Normal examination for a patient of this age. Harrison Causey MD Objective Remarks GENERAL: Elderly gentleman resting in bed. SKIN: Warm and dry. HEAD: Atraumatic. Normocephalic. EYES: Pupils equal and round. No scleral icterus. No injection or drainage. ENT: No nasal bleeding. Oral thrush noted. NECK: Trachea midline. No JVD. CARDIOVASCULAR: Normal rate, regular rhythm. RESPIRATORY: No accessory muscle use. Clear to auscultation. Breath sounds equal bilaterally. GASTROINTESTINAL: Abdomen soft, non-tender, nondistended. No guarding. MUSCULOSKELETAL: Left hand wound is well healed. Extremities without clubbing, cyanosis, or edema. No obvious deformities. NEUROLOGICAL: Alert and oriented. Slow speech. Responding to commands. Moving all extremities. Medications and IVs Current Medications Medications (Trade) Dose Ordered Sig/Michael Route Start Time Stop Time Status Last Admin (NS Flush) 2 ml UNSCH PRN IV FLUSH 04/04/16 03:45 (NS Flush) 2 ml BID IV FLUSH 04/04/16 09:00 04/05/16 19:23 (Protonix Inj) 40 mg DAILY IV 04/04/16 09:00 04/05/16 08:44 (Zofran Inj) 4 mg Q6H PRN IV 04/04/16 03:45 (Colace) 100 mg BID PO 04/04/16 09:00 Miscellaneous Information 1 Q361D XX 04/04/16 03:45 (D50w (Vial) Inj) 25 ml UNSCH PRN IV PUSH 04/04/16 03:45 Glucagon 1 mg 1 mg UNSCH PRN OTHER 04/04/16 03:45 (D5W 1000 ml Inj) 1,000 ml @ 150 mls/hr Q6H40M IV 04/05/16 05:45 04/06/16 03:11 (Norvasc) 5 mg DAILY PO 04/06/16 09:00 (Pravachol) 40 mg DAILY PO 04/06/16 09:00 Tamsulosin HCl 0.4 mg 0.4 mg HS PO 04/05/16 21:00 Fluconazole/ Sodium Chloride 50 ml @ 50 mls/hr Q24H IV 04/06/16 09:00 (Keppra Inj/NS Inj) 105 ml @ 420 mls/hr Q6H IV 04/05/16 15:00 04/06/16 03:11 A/P Assessment and Plan [place] toxicity/ metabolic encephalopathy This is an elderly gentleman living in a senior living facility who presents with neurological changes to include fine tremors in the proximal and distal extremities without focality. Patient has signs of dehydration. [place] level 2 on arrival. He has a history of Bipolar disorder. Poison control was contacted. Neurology and psychiatry consults appreciated. TSH WNL. Not found to be hypoglycemic. May be s/t meds. MRI unremarkable. - Continue IV hydration. - EEG pending. - PT/OT/ST. - the pt is currently NPO per speech therapy. - hold all sedating meds at this time. Defer resuming Parkinson meds to neurology. Renal insufficiency/ hypernatremia The pt presented with lithium toxicity. Creatinine and sodium levels have improved. - continue D5W. - follow BMP. - avoid nephrotoxic agents. Left hand wound From a dog bite. Previously treated per ID. Culture found to be growing AFB . Has leukocytosis. ID consult appreciated. 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 - hold off on antibiotics per ID. Oral thrush Noted on exam. He has had recent antibiotics. - fluconazole started 04/05. Dyspnea/ cough The pt is NPO per speech therapy. Concern for aspiration. Initial CXR unremarkable. The pt has a heavy smoking history. - repeat CXR 04/06. - oxygen and nebs as needed. Anemia Hemoglobin has been decreasing. B12 level WNL. - check folate, iron studies, Hemoccult. - follow CBC. PPx: Heparin; PPI. Discharge Planning Awaiting clinical improvement. Erickson Cordova DO Apr 06, 2016 09:37
[2016-04-06] MEDS: SODIUM CHLORIDE 0.9% FLUSH 5 ML FLUSH IV FLUSH SCH ×2 (09:44→20:50)
[2016-04-06] MEDS: FLUCONAZOLE 100 MG PREMIX BAG 50 ML IV SCH (09:44)
[2016-04-06] MEDS: PANTOPRAZOLE SODIUM 40 MG VIAL IV SCH (09:44)
[2016-04-06 10:27] LABS: TRANSFERRIN IRON PROFILE 138 MG/DL (200-360)
[2016-04-06 10:41] LABS: FERRITIN 374 NG/ML (26-388)
--- NOTE | 2016-04-06 11:34 | RADRPT ---
EXAM DATE/TIME: 04/06/2016 09:42 [facility] COMPARISON: CHEST SINGLE AP, April 04, 2016, 0:25. INDICATIONS: Pneumonia. MEDICAL HISTORY: Hypertension. SURGICAL HISTORY: None. ENCOUNTER: Initial ACUITY: 4 - 6 days PAIN SCORE: Non-responsive. LOCATION: Bilateral chest FINDINGS: The heart is stable in appearance. Minimal streakiness is noted within the left lung base consistent with atelectasis and/or infiltrate. The right lung is clear. CONCLUSION: 1. Minimal left basilar streakiness consistent with atelectasis and/or infiltrate. Clinical correla tion is recommended. Donald Mcgraw MD on April 06, 2016 at 10:21 Board Certified Radiologist. This report was verified electronically.
[2016-04-06] MEDS: HEPARIN SODIUM - SQ 10,000 UNITS/ML VIAL SQ SCH ×2 (14:25→20:49)
[2016-04-06 17:08] LABS: BACTERIA, URINE OCC /hpf; BLOOD, URINE MOD (NEG); GLUCOSE,URINE NEG (NEG); KETONE, URINE NEG (NEG); MUCUS URINE FEW /lpf (OCC); NITRITE,URINE NEG (NEG); URINE COLOR LIGHT-YELLOW (YELLW/STRAW)
[2016-04-06 17:10] LABS: COMMENT (UR) CATH-CULTURE IND; CULTURE IF INDICATED CATH CULTURE IND
--- NOTE | 2016-04-06 17:31 | HHI.PR ---
Review/Management Diagnosis seizure Plan continue keppra Diagnosis/Plan: Subjective Subjective Comments No acute events reported more alert since starting keppra Active Medications Current Medications Medications (Trade) Dose Ordered Sig/Michael Route Start Time Stop Time Status Last Admin (NS Flush) 2 ml UNSCH PRN IV FLUSH 04/04/16 03:45 (NS Flush) 2 ml BID IV FLUSH 04/04/16 09:00 04/06/16 09:44 (Protonix Inj) 40 mg DAILY IV 04/04/16 09:00 04/06/16 09:44 (Zofran Inj) 4 mg Q6H PRN IV 04/04/16 03:45 (Colace) 100 mg BID PO 04/04/16 09:00 Miscellaneous Information 1 Q361D XX 04/04/16 03:45 (D50w (Vial) Inj) 25 ml UNSCH PRN IV PUSH 04/04/16 03:45 Glucagon 1 mg 1 mg UNSCH PRN OTHER 04/04/16 03:45 (D5W 1000 ml Inj) 1,000 ml @ 150 mls/hr Q6H40M IV 04/05/16 05:45 04/06/16 16:02 (Norvasc) 5 mg DAILY PO 04/06/16 09:00 (Pravachol) 40 mg DAILY PO 04/06/16 09:00 Tamsulosin HCl 0.4 mg 0.4 mg HS PO 04/05/16 21:00 Fluconazole/ Sodium Chloride 50 ml @ 50 mls/hr Q24H IV 04/06/16 09:00 04/06/16 09:44 (Keppra Inj/NS Inj) 105 ml @ 420 mls/hr Q6H IV 04/05/16 15:00 04/06/16 16:01 (Heparin Inj) 5,000 units Q8HR SQ 04/06/16 14:00 04/06/16 14:25 Allergies Allergies Coded Allergies Penicillin (Unverified Adverse Reaction, Mild, 04/04/16) Exam I&O / VS 04/05/16 04/05/16 04/06/16 15:00 23:00 07:00 Intake Total 856 ml 1700 ml Output Total 1050 ml 1100 ml Balance -194 ml 600 ml Intake Oral 0 ml 0 ml IV Total 856 ml 1700 ml Output Urine Total 1050 ml 1100 ml # Bowel Movements 0 0 Vital Signs Date Time Temp Pulse Resp B/P Pulse Ox O2 Delivery O2 Flow Rate FiO2 04/06/16 17:00 63 04/06/16 16:00 98.4 64 18 116/62 96 04/06/16 16:00 59 04/06/16 15:00 63 04/06/16 14:00 60 04/06/16 13:00 66 04/06/16 12:00 97.8 65 18 119/54 96 04/06/16 12:00 73 04/06/16 11:00 62 04/06/16 10:00 57 04/06/16 09:00 56 04/06/16 08:06 94 Nasal Cannula 2.00 04/06/16 08:00 57 04/06/16 08:00 97.5 60 20 139/57 97 04/06/16 07:15 97 Nasal Cannula 2.00 04/06/16 07:00 63 04/06/16 06:00 64 04/06/16 05:00 63 04/06/16 04:00 Nasal Cannula 2.00 04/06/16 04:00 61 04/06/16 04:00 98.9 61 18 130/63 95 04/06/16 03:00 60 04/06/16 02:00 64 04/06/16 01:00 63 04/06/16 00:00 71 04/05/16 23:29 Nasal Cannula 2.00 04/05/16 23:29 98.6 61 18 100/56 94 04/05/16 23:00 71 04/05/16 22:00 67 04/05/16 21:00 69 04/05/16 20:00 Nasal Cannula 2.00 04/05/16 20:00 99.0 65 18 113/55 97 04/05/16 20:00 65 04/05/16 18:19 97 Nasal Cannula 2.00 04/05/16 18:00 82 Exam Comments lethargic but arousable and oriented times 3, follows commands CN 2-12 normal motor --no focal deficit Objective Radiology Results MRI brain--normal Micro and Labs Laboratory Tests Test 04/05/16 04/06/16 04/06/16 22:33 03:08 16:00 Sodium Level 145 146 Vitamin B12 Level 581 White Blood Count 14.5 Red Blood Count 3.50 Hemoglobin 10.9 Hematocrit 34.0 Mean Corpuscular Volume 96.9 Mean Corpuscular Hemoglobin 31.1 Mean Corpuscular Hemoglobin 32.1 Concent Red Cell Distribution Width 14.9 Platelet Count 345 Mean Platelet Volume 8.7 Neutrophils (%) (Auto) 79.8 Lymphocytes (%) (Auto) 11.3 Monocytes (%) (Auto) 4.9 Eosinophils (%) (Auto) 3.8 Basophils (%) (Auto) 0.2 Neutrophils # (Auto) 11.6 Lymphocytes # (Auto) 1.6 Monocytes # (Auto) 0.7 Eosinophils # (Auto) 0.6 Basophils # (Auto) 0.0 CBC Comment DIFF FINAL Differential Comment Potassium Level 4.0 Chloride Level 118 Carbon Dioxide Level 22.3 Anion Gap 6 Blood Urea Nitrogen 20 Creatinine 1.78 Estimat Glomerular Filtration 37 Rate Random Glucose 128 Calcium Level 8.6 Iron Level 56 Total Iron Binding Capacity 193 Percent Iron Saturation 29.0 Ferritin 374 Folate 18.7 Urine Color LIGHT-YELLOW Urine Turbidity CLEAR Urine pH 6.0 Urine Specific [place] 1.007 Urine Protein 30 Urine Glucose (UA) NEG Urine Ketones NEG Urine Occult Blood MOD Urine Nitrite NEG Urine Bilirubin NEG Urine Urobilinogen LESS THAN 2.0 Urine Leukocyte Esterase SMALL Urine RBC 31 Urine WBC 9 Urine Bacteria OCC Urine Mucus FEW Microscopic Urinalysis Comment CATH-CULTURE IND Date/Time Procedure Status Source Growth 04/06/16 16:00 Urine Culture Received Urine Catheterized Urine Pending Diagnostic Tests EEG---bilateral epileptiform discharges Sachin Gr PhD Apr 06, 2016 17:31
--- NOTE | 2016-04-06 20:45 | MG ---
cc: KANU SERVIN M.D. Lab No: Date: Age: Sex: M Race: DATE OF STUDY 04/05/2016 TEST NUMBER [id number] TECHNIQUE A 17 channel EEG. DESCRIPTION The background rhythm is a symmetrical alpha rhythm. There is interspace theta activity due to drowsiness. Sharp activity is identified in bilateral hemispheres periodically worse on the left than on the right. This occurs fairly periodically. There were no other lateralizing features. Activation was not done. INTERPRETATION Abnormal study consistent with an underlying seizure disorder with bilateral epileptiform discharges. MD AMBROCIO Donahue/JAY JAY /5:15 PM /8:43 PM
[2016-04-06] MEDS: TAMSULOSIN HCL 0.4 MG CAP PO SCH (20:49)
[2016-04-07] VITALS (30 sets, daily range): BP systolic 116–137; BP diastolic 59–67; PULSE 50–76; RESP 16–18; TEMP 97.8–98.5; O2SAT 95–98
[2016-04-07] MEDS: levETIRAcetam 500 MG/NS 100 ML IV SCH ×8 (04:54→22:42)
[2016-04-07] MEDS: HEPARIN SODIUM - SQ 10,000 UNITS/ML VIAL SQ SCH ×3 (05:00→22:42)
[2016-04-07 05:26] LABS: HEMATOCRIT 34.6 % (39.0-51.0); MEAN CELL VOLUME 96.7 FL (80.0-100.0); MEAN CORPUSCULAR HEMOGLOBIN 31.4 PG (27.0-34.0); MEAN CORPUSCULAR HGB CONC 32.4 % (32.0-36.0); PLATELET COUNT 332 TH/MM3 (150-450); RED BLOOD COUNT 3.58 MIL/MM3 (4.50-5.90); RED CELL DISTRIBUTION WIDTH 14.4 % (11.6-17.2); REVIEW FLAG FINAL; WHITE BLOOD COUNT 13.6 TH/MM3 (4.0-11.0)
[2016-04-07 05:42] LABS: BICARBONATE 22.5 MEQ/L (21.0-32.0); MAGNESIUM 1.9 MG/DL (1.5-2.5)
[2016-04-07] MEDS: DEXTROSE 5% IN WATE 1000ML INJ 1,000 ML IV SCH ×3 (08:24→22:42)
[2016-04-07] MEDS: amLODIPine BESYLATE 5 MG TAB PO SCH (08:31)
[2016-04-07] MEDS: DOCUSATE SODIUM 100 MG CAP PO SCH ×2 (08:31→22:35)
[2016-04-07] MEDS: PRAVASTATIN SOD 40 MG TAB PO SCH (08:32)
[2016-04-07] MEDS: PANTOPRAZOLE SODIUM 40 MG VIAL IV SCH (08:53)
[2016-04-07] MEDS: FLUCONAZOLE 100 MG PREMIX BAG 50 ML IV SCH (08:53)
[2016-04-07] MEDS: SODIUM CHLORIDE 0.9% FLUSH 5 ML FLUSH IV FLUSH SCH ×2 (08:59→21:00)
--- NOTE | 2016-04-07 10:07 | HHI.PR ---
Subjective Remarks Follow up seizure, encephalopathy, lithium toxicity. No complaints at this time. Denies chest pain, dyspnea, nausea, vomiting. Objective Vitals Vital Signs Date Time Temp Pulse Resp B/P Pulse Ox O2 Delivery O2 Flow Rate FiO2 04/07/16 08:24 97.8 58 18 123/60 97 04/07/16 08:24 97 Nasal Cannula 2.00 04/07/16 07:56 95 Nasal Cannula 2.00 04/07/16 06:00 61 04/07/16 05:00 57 04/07/16 04:00 98.0 66 18 122/65 97 04/07/16 04:00 56 04/07/16 03:00 63 04/07/16 02:00 67 04/07/16 01:00 68 04/07/16 00:00 59 04/07/16 00:00 98.2 63 18 116/59 97 04/06/16 23:00 64 04/06/16 22:00 65 04/06/16 21:15 94 Nasal Cannula 2.00 04/06/16 21:00 61 04/06/16 20:00 66 04/06/16 20:00 98.1 72 18 129/72 97 04/06/16 19:00 97 Nasal Cannula 2.00 04/06/16 19:00 61 04/06/16 18:00 60 04/06/16 17:00 63 04/06/16 16:00 98.4 64 18 116/62 96 04/06/16 16:00 59 04/06/16 15:00 63 04/06/16 14:00 60 04/06/16 13:00 66 04/06/16 12:00 97.8 65 18 119/54 96 04/06/16 12:00 73 04/06/16 11:00 62 I/O 04/06/16 04/06/16 04/06/16 04/07/16 04/07/16 04/07/16 07:00 15:00 23:00 07:00 15:00 23:00 Intake Total 1700 ml 1395 ml 1542 ml Output Total 1100 ml 1300 ml 1550 ml Balance 600 ml 95 ml -8 ml Intake Oral 0 ml IV Total 1700 ml 1395 ml 1542 ml Output Urine Total 1100 ml 1300 ml 1550 ml # Bowel Movements 0 0 1 Result Diagram: 04/07/16 0448 04/07/16 0448 Imaging Last Impressions Chest X-Ray 04/06/16 0000 Signed Impressions: Service Date/Time: Wednesday, April 06, 2016 09:42 - CONCLUSION: 1. Minimal left basilar streakiness consistent with atelectasis and/or infiltrate. Clinical correlation is recommended. Donald Mcgraw MD Brain MRI 04/05/16 0000 Signed Impressions: Service Date/Time: Tuesday, April 05, 2016 15:28 - CONCLUSION: 1. Mild cerebral atrophy. 2. No acute infarct, acute hemorrhage, mass effect or extra-axial fluid collections. Donald Mcgraw MD Head CT 04/03/16 0000 Signed Impressions: Service Date/Time: Sunday, April 03, 2016 22:36 - CONCLUSION: Normal examination for a patient of this age. Harrison Causey MD Objective Remarks General: Elderly male in no acute distress. Heart: Regular rate and rhythm. No murmur. Lungs: Clear to auscultation bilaterally. No wheezes, rales, or rhonchi. Breathing is nonlabored. Abdomen: Soft, nontender, nondistended. Extremities: No lower extremity edema. Psych: Alert, answers questions appropriately. Urinary Catheter: No Vascular Central Line Catheter: No A/P Problem List: (1) [place] toxicity ICD Code: T56.891A Status: Acute (2) Delirium due to another medical condition ICD Code: F05 Status: Acute (3) Encephalopathy ICD Code: G93.40 Status: Acute (4) HLD (hyperlipidemia) ICD Code: E78.5 Status: Chronic (5) FEN/PPX Status: Chronic Assessment and Plan 1. Metabolic encephalopathy secondary to lithium toxicity: Appreciate neurology , psychiatry recommendations. Continue PT/OT/ST. Sedating medications on hold. Defer resuming Parkinson meds to neurology. 2. Acute kidney injury: Creatinine is trending down. Continue IV fluids. 3. Hypernatremia: Improved. 4. Left hand wound secondary to dog bite: No antibiotics at this time per infectious disease. 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 5. Oral thrush: Continue Diflucan. 6. Dysphagia: Full liquid diet per speech therapy. 7. Anemia: H&H stable. 8. GI prophylaxis: PPI. 9. DVT prophylaxis: Heparin. 10. Seizure disorder: Appreciate neurology recommendations. Continue Keppra. Seizure precautions. Problem Qualifiers (1) [place] toxicity: Qualified Code: T56.891A - [place] toxicity, accidental or unintentional, initial encounter Gen Smith MD Apr 07, 2016 10:07
[2016-04-07] MEDS: TAMSULOSIN HCL 0.4 MG CAP PO SCH (22:35)
[2016-04-08] VITALS (28 sets, daily range): BP systolic 125–154; BP diastolic 57–79; PULSE 59–86; RESP 14–21; TEMP 97.2–98.4; O2SAT 97–98
[2016-04-08] MEDS: levETIRAcetam 500 MG/NS 100 ML IV SCH ×8 (03:40→22:56)
[2016-04-08] MEDS: HEPARIN SODIUM - SQ 10,000 UNITS/ML VIAL SQ SCH ×3 (06:05→22:57)
[2016-04-08] MEDS: DEXTROSE 5% IN WATE 1000ML INJ 1,000 ML IV SCH (06:05)
[2016-04-08 06:18] LABS: AUTOMATED NEUTROPHIL # 10.2 TH/MM3 (1.8-7.7); BASOPHIL # 0.1 TH/MM3 (0-0.2); BASOPHIL % 0.8 % (0.0-2.0); EOSINOPHIL # 0.4 TH/MM3 (0-0.4); EOSINOPHIL % 3.4 % (0.0-4.0); HEMATOCRIT 34.9 % (39.0-51.0); HEMO FLAGS DIFF FINAL; LYMPH % 10.6 % (9.0-44.0); LYMPHOCYTE # 1.3 TH/MM3 (1.0-4.8); MEAN CELL VOLUME 96.3 FL (80.0-100.0); MEAN CORPUSCULAR HEMOGLOBIN 31.3 PG (27.0-34.0); MEAN CORPUSCULAR HGB CONC 32.5 % (32.0-36.0); NEUT % 80.2 % (16.0-70.0); PLATELET COUNT 317 TH/MM3 (150-450); RED BLOOD COUNT 3.63 MIL/MM3 (4.50-5.90); RED CELL DISTRIBUTION WIDTH 14.5 % (11.6-17.2); WHITE BLOOD COUNT 12.8 TH/MM3 (4.0-11.0)
[2016-04-08 06:43] LABS: POTASSIUM 4.1 MEQ/L (3.5-5.1)
--- NOTE | 2016-04-08 08:40 | HHI.PR ---
Subjective Remarks Follow up seizures, encephalopathy. The patient has no complaints at this time. Denies pain, dyspnea, cough. Objective Vitals Vital Signs Date Time Temp Pulse Resp B/P Pulse Ox O2 Delivery O2 Flow Rate FiO2 04/08/16 04:00 59 04/08/16 03:45 98.0 72 16 128/57 98 04/08/16 03:00 60 04/08/16 02:44 98 Nasal Cannula 04/08/16 02:00 63 04/08/16 01:00 62 04/08/16 00:00 62 04/07/16 23:05 98 Room Air 04/07/16 23:05 98.4 66 16 126/67 98 04/07/16 23:00 60 04/07/16 22:00 59 04/07/16 21:00 59 04/07/16 20:00 64 04/07/16 19:15 98.4 76 16 134/63 98 04/07/16 19:15 98 Room Air 04/07/16 19:00 60 04/07/16 18:00 61 04/07/16 17:00 56 04/07/16 16:00 52 04/07/16 15:48 98.5 56 16 119/63 96 04/07/16 15:00 60 04/07/16 14:00 59 04/07/16 13:00 59 04/07/16 12:00 62 04/07/16 11:29 97 Room Air 04/07/16 11:25 98.2 58 18 137/66 96 04/07/16 11:00 50 04/07/16 10:00 56 04/07/16 09:00 56 I/O 04/07/16 04/07/16 04/07/16 04/08/16 04/08/16 04/08/16 07:00 15:00 23:00 07:00 15:00 23:00 Intake Total 1542 ml 1905 ml 240 ml Output Total 1550 ml 2000 ml 1575 ml Balance -8 ml -95 ml -1335 ml Intake Oral 245 ml 240 ml IV Total 1542 ml 1660 ml Output Urine Total 1550 ml 2000 ml 1575 ml # Bowel Movements 1 1 Result Diagram: 04/08/16 0520 04/08/16 0520 Imaging Last Impressions Chest X-Ray 04/06/16 0000 Signed Impressions: Service Date/Time: Wednesday, April 06, 2016 09:42 - CONCLUSION: 1. Minimal left basilar streakiness consistent with atelectasis and/or infiltrate. Clinical correlation is recommended. Donald Mcgraw MD Brain MRI 04/05/16 0000 Signed Impressions: Service Date/Time: Tuesday, April 05, 2016 15:28 - CONCLUSION: 1. Mild cerebral atrophy. 2. No acute infarct, acute hemorrhage, mass effect or extra-axial fluid collections. Donald Mcgraw MD Head CT 04/03/16 0000 Signed Impressions: Service Date/Time: Sunday, April 03, 2016 22:36 - CONCLUSION: Normal examination for a patient of this age. Harrison Causey MD Objective Remarks General: Elderly male in no acute distress. Heart: Regular rate and rhythm. No murmur. Lungs: Clear to auscultation bilaterally. No wheezes, rales, or rhonchi. Breathing is nonlabored. Abdomen: Soft, nontender, nondistended. Extremities: No lower extremity edema. Psych: Alert, answers questions appropriately. Procedures None Urinary Catheter: Yes Assessment to: Remove Vascular Central Line Catheter: No A/P Problem List: (1) [place] toxicity ICD Code: T56.891A Status: Acute (2) Delirium due to another medical condition ICD Code: F05 Status: Acute (3) Encephalopathy ICD Code: G93.40 Status: Acute (4) HLD (hyperlipidemia) ICD Code: E78.5 Status: Chronic (5) FEN/PPX Status: Chronic Assessment and Plan 1. Metabolic encephalopathy secondary to lithium toxicity: Appreciate neurology , psychiatry recommendations. Continue PT/OT/ST. Sedating medications on hold. Defer resuming Parkinson meds to neurology. 2. Acute kidney injury: Creatinine is trending down. Continue IV fluids. 3. Hypernatremia: Improved. 4. Left hand wound secondary to dog bite: No antibiotics at this time per infectious disease. 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 5. Oral thrush: Continue Diflucan. 6. Dysphagia: Full liquid diet per speech therapy. 7. Anemia: H&H stable. 8. GI prophylaxis: PPI. 9. DVT prophylaxis: Heparin. 10. Seizure disorder: Appreciate neurology recommendations. Continue Keppra. Seizure precautions. 11. UTI: Urine culture growing MRSA. Sensitivities pending. Remove Allison. Re- consult infectious disease. Problem Qualifiers (1) [place] toxicity: Qualified Code: T56.891A - [place] toxicity, accidental or unintentional, initial encounter Gen Smith MD Apr 08, 2016 08:40
[2016-04-08] MEDS: NS + KCL 20 MEQ INJ 1,000 ML IV SCH ×2 (09:00→22:57)
[2016-04-08] MEDS: DOCUSATE SODIUM 100 MG CAP PO SCH ×2 (09:00→22:57)
[2016-04-08] MEDS: PRAVASTATIN SOD 40 MG TAB PO SCH (09:00)
[2016-04-08] MEDS: amLODIPine BESYLATE 5 MG TAB PO SCH (09:01)
[2016-04-08] MEDS: FLUCONAZOLE 100 MG PREMIX BAG 50 ML IV SCH (09:01)
[2016-04-08] MEDS: PANTOPRAZOLE SODIUM 40 MG VIAL IV SCH (09:01)
[2016-04-08] MEDS: SODIUM CHLORIDE 0.9% FLUSH 5 ML FLUSH IV FLUSH SCH ×2 (09:01→22:57)
[2016-04-08] MEDS ORDERED: ACETAMINOPHEN 500 MG CPLT PO ONE (13:15)
--- NOTE | 2016-04-08 13:55 | HHI.IDPN ---
Note Infectious Disease Note Called to decide on positive urine culture. Notes reviewed. Patient is more awake and alert than the last time I saw him 3 days ago. No complaints. Urine culture came back with MRSA. Has hamilton in place. This is a 75-year-old white male who was recently discharged from this facility on March 17, 2016. The patient was treated for left hand cellulitis and dog bite injury. He was discharged on oral antibiotics. The patient was readmitted to the hospital again from a prison facility with altered mental status and acute kidney injury and he was also admitted as a stroke alert. The patient reportedly developed sweaty palms and flushed face and tremors. He does not verbalize. He is laying in bed currently and is in no acute distress. Information is obtained from the medical record. The patient is being evaluated by neurology as well. The previous culture from the wound of the left hand grew Pasteurella multocida Penicillium species. The culture was also sent for AFB and is positive for AFB but the identity of the organism is pending. This is the reason why this consultation is requested. The patient is afebrile. He is in no acute distress. He has a dressing on the hand on the left side and a dried healed wound with the skin having come together where the laceration wound was located at the dorsum of the hand. The patient received ciprofloxacin up until this admission. PAST MEDICAL HISTORY: 1. Bipolar disease. 2. Hypertension. ALLERGIES: PENICILLIN. Current Medications Medications (Trade) Dose Ordered Sig/Michael Route PRN Reason Start Time Stop Time Status Last Admin Dose Admin IV Flush (NS Flush) 2 ml UNSCH PRN IV FLUSH FLUSH AFTER USING IV ACCESS 04/04/16 03:45 IV Flush (NS Flush) 2 ml BID IV FLUSH 04/04/16 09:00 04/08/16 09:01 Pantoprazole Sodium (Protonix Inj) 40 mg DAILY IV 04/04/16 09:00 04/08/16 09:01 Ondansetron HCl (Zofran Inj) 4 mg Q6H PRN IV NAUSEA OR VOMITING 04/04/16 03:45 Docusate Sodium (Colace) 100 mg BID PO 04/04/16 09:00 04/07/16 22:35 Miscellaneous Information 1 Q361D XX 04/04/16 03:45 Dextrose (D50w (Vial) Inj) 25 ml UNSCH PRN IV PUSH HYPOGLYCEMIA-SEE COMMENTS 04/04/16 03:45 Glucagon (Glucagon Inj) 1 mg UNSCH PRN OTHER HYPOGLYCEMIA-SEE COMMENTS 04/04/16 03:45 Amlodipine Besylate (Norvasc) 5 mg DAILY PO 04/06/16 09:00 04/08/16 09:01 Pravastatin Sodium (Pravachol) 40 mg DAILY PO 04/06/16 09:00 04/08/16 09:00 Tamsulosin HCl 0.4 mg 0.4 mg HS PO 04/05/16 21:00 04/07/16 22:35 Fluconazole/ Sodium Chloride 50 ml @ 50 mls/hr Q24H IV 04/06/16 09:00 04/08/16 09:01 Levetriacetam/ Sodium Chloride (Keppra Inj/NS Inj) 105 ml @ 420 mls/hr Q6H IV 04/05/16 15:00 04/08/16 13:22 Heparin Sodium (Porcine) 5000 units 5,000 units Q8HR SQ 04/06/16 14:00 04/08/16 13:22 Potassium Chloride/Sodium Chloride (NS + KCl 20 Meq Inj) 1,000 ml @ 83 mls/hr Q12H3M IV 04/08/16 08:45 04/08/16 09:00 SOCIAL HISTORY: No tobacco, no alcohol. No illicit drugs. FAMILY HISTORY: Noncontributory. FAMILY HISTORY: Noncontributory. OBJ: Vital Signs Date Time Temp Pulse Resp B/P Pulse Ox O2 Delivery O2 Flow Rate FiO2 04/08/16 10:00 76 04/08/16 09:00 68 04/08/16 08:00 72 04/08/16 08:00 97.2 68 21 131/58 97 04/08/16 07:00 61 04/08/16 04:00 59 04/08/16 03:45 98.0 72 16 128/57 98 04/08/16 03:00 60 04/08/16 02:44 98 Nasal Cannula 04/08/16 02:00 63 04/08/16 01:00 62 04/08/16 00:00 62 04/07/16 23:05 98 Room Air 04/07/16 23:05 98.4 66 16 126/67 98 04/07/16 23:00 60 04/07/16 22:00 59 04/07/16 21:00 59 04/07/16 20:00 64 04/07/16 19:15 98.4 76 16 134/63 98 04/07/16 19:15 98 Room Air 04/07/16 19:00 60 04/07/16 18:00 61 04/07/16 17:00 56 04/07/16 16:00 52 04/07/16 15:48 98.5 56 16 119/63 96 04/07/16 15:00 60 04/07/16 14:00 59 Laboratory Tests Test 04/07/16 04/08/16 04:48 05:20 White Blood Count 13.6 TH/MM3 12.8 TH/MM3 Red Blood Count 3.58 MIL/MM3 3.63 MIL/MM3 Hemoglobin 11.2 GM/DL 11.4 GM/DL Hematocrit 34.6 % 34.9 % Mean Corpuscular Volume 96.7 FL 96.3 FL Mean Corpuscular Hemoglobin 31.4 PG 31.3 PG Mean Corpuscular Hemoglobin 32.4 % 32.5 % Concent Red Cell Distribution Width 14.4 % 14.5 % Platelet Count 332 TH/MM3 317 TH/MM3 Mean Platelet Volume 9.0 FL 9.4 FL Neutrophils (%) (Auto) 80.2 % Lymphocytes (%) (Auto) 10.6 % Monocytes (%) (Auto) 5.0 % Eosinophils (%) (Auto) 3.4 % Basophils (%) (Auto) 0.8 % Neutrophils # (Auto) 10.2 TH/MM3 Lymphocytes # (Auto) 1.3 TH/MM3 Monocytes # (Auto) 0.6 TH/MM3 Eosinophils # (Auto) 0.4 TH/MM3 Basophils # (Auto) 0.1 TH/MM3 CBC Comment DIFF FINAL Differential Comment Laboratory Tests Test 04/07/16 04/08/16 04:48 05:20 Sodium Level 142 MEQ/L 141 MEQ/L Potassium Level 4.0 MEQ/L 4.1 MEQ/L Chloride Level 112 MEQ/L 111 MEQ/L Carbon Dioxide Level 22.5 MEQ/L 23.0 MEQ/L Anion Gap 8 MEQ/L 7 MEQ/L Blood Urea Nitrogen 17 MG/DL 17 MG/DL Creatinine 1.66 MG/DL 1.56 MG/DL Estimat Glomerular Filtration 41 ML/MIN 44 ML/MIN Rate Random Glucose 111 MG/DL 112 MG/DL Calcium Level 8.9 MG/DL 8.8 MG/DL Magnesium Level 1.9 MG/DL Microbiology Date/Time Procedure Status Source Growth 04/06/16 16:00 Urine Culture - Final Complete Urine Catheterized Urine S. Aureus Mrsa PHYSICAL EXAMINATION: GENERAL: No acute distress. He is awake and alert and communicative. HEAD, EYES, EARS, NOSE, THROAT: The head is atraumatic. No scalp tenderness. Extraocular movements grossly intact. Pupils are reactive to light and have no icterus. Oropharynx slightly dry mucosa. Oral thrush improving. NECK: The neck is supple without adenopathy or swelling. LUNGS: Clear breath sounds bilaterally. HEART: Regular S1 and S2 without audible murmurs. ABDOMEN: Flat, soft, nontender. Positive bowel sounds. EXTREMITIES: No clubbing or cyanosis. The left hand has a wound which is well-healed and dry. No visible erythema or swelling. The rest of the extremities have no clubbing, cyanosis or edema. SKIN: No rash. NEUROLOGIC: Non focal. PSYCHIATRIC: The patient is calm. IMPRESSION: 1. Healed wound of the left hand in a patient who is status post bite injury and has previous culture with Pasteurella. Culture now shows positive for AFB. Patient is status post treatment with ciprofloxacin and has been receiving rabies vaccination because the patient was bitten by a stray dog. 2. MRSA UTI. RECOMMEND: D/C hamilton catheter. PO Linezolid x 3 days. Repeat urine culture for clearance if WBC is still elevated or if he needs hamilton reinserted. Misha Tinoco MD Apr 08, 2016 13:55
[2016-04-08] MEDS: LINEZOLID 600 MG TAB PO SCH ×2 (14:00→22:57)
[2016-04-08] MEDS: TAMSULOSIN HCL 0.4 MG CAP PO SCH (22:57)
[2016-04-09] VITALS (27 sets, daily range): BP systolic 128–164; BP diastolic 72–80; PULSE 57–84; RESP 16–18; TEMP 97–98; O2SAT 96–98
[2016-04-09] MEDS: levETIRAcetam 500 MG/NS 100 ML IV SCH ×6 (03:28→14:19)
[2016-04-09] MEDS: HEPARIN SODIUM - SQ 10,000 UNITS/ML VIAL SQ SCH ×3 (06:15→21:57)
[2016-04-09 06:30] LABS: AUTOMATED NEUTROPHIL # 13.4 TH/MM3 (1.8-7.7); BASOPHIL % 0.3 % (0.0-2.0); EOSINOPHIL # 0.1 TH/MM3 (0-0.4); HEMATOCRIT 37.8 % (39.0-51.0); HEMO FLAGS DIFF FINAL; LYMPH % 4.1 % (9.0-44.0); LYMPHOCYTE # 0.6 TH/MM3 (1.0-4.8); MEAN CELL VOLUME 96.6 FL (80.0-100.0); MEAN CORPUSCULAR HEMOGLOBIN 30.9 PG (27.0-34.0); MONO % 4.3 % (0.0-8.0); NEUT % 90.3 % (16.0-70.0); PLATELET COUNT 338 TH/MM3 (150-450); RED BLOOD COUNT 3.91 MIL/MM3 (4.50-5.90); RED CELL DISTRIBUTION WIDTH 14.9 % (11.6-17.2); WHITE BLOOD COUNT 14.8 TH/MM3 (4.0-11.0)
[2016-04-09 07:04] LABS: BICARBONATE 19.1 MEQ/L (21.0-32.0); POTASSIUM 4.4 MEQ/L (3.5-5.1)
[2016-04-09] MEDS: PRAVASTATIN SOD 40 MG TAB PO SCH (08:43)
[2016-04-09] MEDS: amLODIPine BESYLATE 5 MG TAB PO SCH (08:43)
[2016-04-09] MEDS: DOCUSATE SODIUM 100 MG CAP PO SCH ×2 (08:44→21:56)
[2016-04-09] MEDS: FLUCONAZOLE 100 MG PREMIX BAG 50 ML IV SCH (08:44)
[2016-04-09] MEDS: LINEZOLID 600 MG TAB PO SCH ×2 (08:44→21:56)
[2016-04-09] MEDS: PANTOPRAZOLE SODIUM 40 MG VIAL IV SCH (08:45)
[2016-04-09] MEDS: SODIUM CHLORIDE 0.9% FLUSH 5 ML FLUSH IV FLUSH SCH ×2 (08:45→21:00)
[2016-04-09] MEDS: NS + KCL 20 MEQ INJ 1,000 ML IV SCH ×2 (08:50→21:57)
--- NOTE | 2016-04-09 11:13 | HHI.PR ---
Subjective Remarks Follow up UTI, seizures, encephalopathy. Patient has no complaints at this time. Denies pain currently. Objective Vitals Vital Signs Date Time Temp Pulse Resp B/P Pulse Ox O2 Delivery O2 Flow Rate FiO2 04/09/16 10:00 79 04/09/16 09:54 79 04/09/16 09:53 97.4 79 18 128/78 96 04/09/16 08:07 84 04/09/16 07:34 62 04/09/16 04:00 73 04/09/16 03:05 97.9 78 16 139/74 98 04/09/16 03:00 65 04/09/16 02:00 71 04/09/16 01:00 69 04/09/16 00:00 68 04/08/16 23:30 98.1 74 16 130/69 98 04/08/16 23:00 66 04/08/16 22:00 61 04/08/16 21:00 60 04/08/16 20:00 62 04/08/16 19:30 98.4 64 16 154/79 98 04/08/16 19:00 62 04/08/16 18:00 66 04/08/16 17:55 97 21 04/08/16 17:00 68 04/08/16 16:00 68 04/08/16 15:09 97.5 68 14 136/71 97 04/08/16 15:00 71 04/08/16 14:00 74 04/08/16 13:00 86 04/08/16 12:00 79 I/O 04/08/16 04/08/16 04/08/16 04/09/16 04/09/16 04/09/16 07:00 15:00 23:00 07:00 15:00 23:00 Intake Total 240 ml 2931 ml Output Total 1575 ml 1350 ml 820 ml Balance -1335 ml 1581 ml -820 ml Intake Oral 240 ml 480 ml IV Total 2451 ml Output Urine Total 1575 ml 1350 ml 820 ml # Bowel Movements 1 Result Diagram: 04/09/16 0520 04/09/16 0520 Imaging Last Impressions Chest X-Ray 04/06/16 0000 Signed Impressions: Service Date/Time: Wednesday, April 06, 2016 09:42 - CONCLUSION: 1. Minimal left basilar streakiness consistent with atelectasis and/or infiltrate. Clinical correlation is recommended. Donald Mcgraw MD Brain MRI 04/05/16 0000 Signed Impressions: Service Date/Time: Tuesday, April 05, 2016 15:28 - CONCLUSION: 1. Mild cerebral atrophy. 2. No acute infarct, acute hemorrhage, mass effect or extra-axial fluid collections. Donald Mcgraw MD Head CT 04/03/16 0000 Signed Impressions: Service Date/Time: Sunday, April 03, 2016 22:36 - CONCLUSION: Normal examination for a patient of this age. Harrison Causey MD Objective Remarks General: Elderly male in no acute distress. Heart: Regular rate and rhythm. No murmur. Lungs: Clear to auscultation bilaterally. No wheezes, rales, or rhonchi. Breathing is nonlabored. Abdomen: Soft, nontender, nondistended. Extremities: No lower extremity edema. Psych: Alert, answers questions appropriately. Procedures None Urinary Catheter: No Vascular Central Line Catheter: No A/P Problem List: (1) [place] toxicity ICD Code: T56.891A Status: Acute (2) Delirium due to another medical condition ICD Code: F05 Status: Acute (3) Encephalopathy ICD Code: G93.40 Status: Acute (4) HLD (hyperlipidemia) ICD Code: E78.5 Status: Chronic (5) FEN/PPX Status: Chronic Assessment and Plan 1. Metabolic encephalopathy secondary to lithium toxicity: Appreciate neurology , psychiatry recommendations. Continue PT/OT/ST. Sedating medications on hold. Defer resuming Parkinson meds to neurology. 2. Acute kidney injury: Creatinine is trending down. Continue IV fluids. 3. Hypernatremia: Improved. 4. Left hand wound secondary to dog bite: No antibiotics at this time per infectious disease. 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 5. Oral thrush: Continue Diflucan. 6. Dysphagia: Full liquid diet per speech therapy. 7. Anemia: H&H stable. 8. GI prophylaxis: PPI. 9. DVT prophylaxis: Heparin. 10. Seizure disorder: Appreciate neurology recommendations. Continue Keppra. Will need to be transitioned to oral antiepileptic medication. Seizure precautions. 11. UTI: Urine culture growing MRSA. Allison catheter discontinued. Appreciate infectious disease recommendations. Discussed with Dr. Tinoco yesterday. Continue Zyvox 3 days. 12. Leukocytosis: Possibly secondary to infection. Monitor labs. Discharge Planning Possible discharge to SNF next 1-2 days if cleared by neurology. Problem Qualifiers (1) [place] toxicity: Qualified Code: T56.891A - [place] toxicity, accidental or unintentional, initial encounter Gen Smith MD Apr 09, 2016 11:13
--- NOTE | 2016-04-09 20:35 | HHI.PR ---
Review/Management Diagnosis seizure Plan continue keppra--change to 1000 mg po bid Ok to dicharge tomorrow from neurologic standpoint--follow up with me as outpatient in 3 weeks Diagnosis/Plan: Subjective Subjective Comments No acute events reported No seizures Active Medications Current Medications Medications (Trade) Dose Ordered Sig/Michael Route Start Time Stop Time Status Last Admin (NS Flush) 2 ml UNSCH PRN IV FLUSH 04/04/16 03:45 (NS Flush) 2 ml BID IV FLUSH 04/04/16 09:00 04/09/16 08:45 (Protonix Inj) 40 mg DAILY IV 04/04/16 09:00 04/09/16 08:45 (Zofran Inj) 4 mg Q6H PRN IV 04/04/16 03:45 (Colace) 100 mg BID PO 04/04/16 09:00 04/09/16 08:44 Miscellaneous Information 1 Q361D XX 04/04/16 03:45 (D50w (Vial) Inj) 25 ml UNSCH PRN IV PUSH 04/04/16 03:45 (Glucagon Inj) 1 mg UNSCH PRN OTHER 04/04/16 03:45 (Norvasc) 5 mg DAILY PO 04/06/16 09:00 04/09/16 08:43 (Pravachol) 40 mg DAILY PO 04/06/16 09:00 04/09/16 08:43 Tamsulosin HCl 0.4 mg 0.4 mg HS PO 04/05/16 21:00 04/08/16 22:57 Fluconazole/ Sodium Chloride 50 ml @ 50 mls/hr Q24H IV 04/06/16 09:00 04/09/16 08:44 (Keppra Inj/NS Inj) 105 ml @ 420 mls/hr Q6H IV 04/05/16 15:00 04/09/16 14:19 Heparin Sodium (Porcine) 5000 units 5,000 units Q8HR SQ 04/06/16 14:00 04/09/16 14:19 (NS + KCl 20 Meq Inj) 1,000 ml @ 83 mls/hr Q12H3M IV 04/08/16 08:45 04/08/16 22:57 (Zyvox) 600 mg Q12HR PO 04/08/16 14:00 04/11/16 13:59 04/09/16 08:44 Allergies Allergies Coded Allergies Penicillin (Unverified Adverse Reaction, Mild, 04/04/16) *MDRO Multi-Drug Resistant Organism (Verified Adverse Reaction, Unknown, MRSA , 04/08/16) Exam I&O / VS 04/08/16 04/08/16 04/09/16 15:00 23:00 07:00 Intake Total 2931 ml Output Total 1350 ml 820 ml Balance 1581 ml -820 ml Intake Oral 480 ml IV Total 2451 ml Output Urine Total 1350 ml 820 ml # Bowel Movements 1 Vital Signs Date Time Temp Pulse Resp B/P Pulse Ox O2 Delivery O2 Flow Rate FiO2 04/09/16 18:15 76 04/09/16 17:03 72 04/09/16 16:02 76 04/09/16 16:02 97.6 78 18 128/80 98 04/09/16 15:17 82 04/09/16 14:01 74 04/09/16 13:57 76 04/09/16 12:30 78 04/09/16 11:22 97.0 80 18 128/74 98 04/09/16 11:16 74 04/09/16 10:00 79 04/09/16 09:54 79 04/09/16 09:53 97.4 79 18 128/78 96 04/09/16 08:07 84 04/09/16 07:34 62 04/09/16 04:00 73 04/09/16 03:05 97.9 78 16 139/74 98 04/09/16 03:00 65 04/09/16 02:00 71 04/09/16 01:00 69 04/09/16 00:00 68 04/08/16 23:30 98.1 74 16 130/69 98 04/08/16 23:00 66 04/08/16 22:00 61 04/08/16 21:00 60 Exam Comments lethargic but arousable and oriented times 3, follows commands CN 2-12 normal motor --no focal deficit Objective Micro and Labs Laboratory Tests Test 04/09/16 05:20 White Blood Count 14.8 Red Blood Count 3.91 Hemoglobin 12.1 Hematocrit 37.8 Mean Corpuscular Volume 96.6 Mean Corpuscular Hemoglobin 30.9 Mean Corpuscular Hemoglobin 32.0 Concent Red Cell Distribution Width 14.9 Platelet Count 338 Mean Platelet Volume 9.6 Neutrophils (%) (Auto) 90.3 Lymphocytes (%) (Auto) 4.1 Monocytes (%) (Auto) 4.3 Eosinophils (%) (Auto) 1.0 Basophils (%) (Auto) 0.3 Neutrophils # (Auto) 13.4 Lymphocytes # (Auto) 0.6 Monocytes # (Auto) 0.6 Eosinophils # (Auto) 0.1 Basophils # (Auto) 0.0 CBC Comment DIFF FINAL Differential Comment Sodium Level 146 Potassium Level 4.4 Chloride Level 118 Carbon Dioxide Level 19.1 Anion Gap 9 Blood Urea Nitrogen 16 Creatinine 1.42 Estimat Glomerular Filtration 49 Rate Random Glucose 84 Calcium Level 8.9 Date/Time Procedure Status Source Growth 04/06/16 16:00 Urine Culture - Final Complete Urine Catheterized Urine S. Aureus Mrsa Sachin Gr PhD MD Apr 09, 2016 20:35
[2016-04-09] MEDS: TAMSULOSIN HCL 0.4 MG CAP PO SCH (21:56)
[2016-04-09] MEDS: levETIRAcetam 500 MG TAB PO SCH (21:56)
[2016-04-10] VITALS (15 sets, daily range): BP systolic 122–155; BP diastolic 72–75; PULSE 52–78; RESP 18; TEMP 97.8–98; O2SAT 96–99
[2016-04-10] MEDS: HEPARIN SODIUM - SQ 10,000 UNITS/ML VIAL SQ SCH (06:38)
[2016-04-10 07:07] LABS: BICARBONATE 18.4 MEQ/L (21.0-32.0); POTASSIUM 4.8 MEQ/L (3.5-5.1)
[2016-04-10 07:10] LABS: AUTOMATED NEUTROPHIL # 11.7 TH/MM3 (1.8-7.7); BASOPHIL # 0.1 TH/MM3 (0-0.2); BASOPHIL % 0.5 % (0.0-2.0); EOSINOPHIL # 0.4 TH/MM3 (0-0.4); EOSINOPHIL % 2.7 % (0.0-4.0); HEMATOCRIT 34.6 % (39.0-51.0); HEMO FLAGS DIFF FINAL; LYMPH % 7.7 % (9.0-44.0); LYMPHOCYTE # 1.1 TH/MM3 (1.0-4.8); MEAN CELL VOLUME 97.5 FL (80.0-100.0); MEAN CORPUSCULAR HEMOGLOBIN 31.2 PG (27.0-34.0); MONO % 4.3 % (0.0-8.0); NEUT % 84.8 % (16.0-70.0); PLATELET COUNT 301 TH/MM3 (150-450); RED BLOOD COUNT 3.55 MIL/MM3 (4.50-5.90); RED CELL DISTRIBUTION WIDTH 14.9 % (11.6-17.2); WHITE BLOOD COUNT 13.7 TH/MM3 (4.0-11.0)
[2016-04-10] MEDS ORDERED: LEVE500 PO (07:34)
[2016-04-10] MEDS ORDERED: ZYVO600T PO (07:34)
--- NOTE | 2016-04-10 07:35 | HHI.DS ---
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 On presentation to the ED,initially the patient was not able to respond to questions or be conversant. He was unable to hold a conversation however was able to answer yes and no. ASIS past medical history is significant for bipolar disorder .Upon arrival to the ER the patient was tremulous. EMS notes the patient had a supratherapeutic lithium level obtained 2 days prior. His lithium placed on hold. Imaging studies and laboratory specimens were obtained. Critical care medicine was consulted for management and treatment. History PFSH Past Medical History Cardiovascular Problems: No Diminished Hearing: No Genitourinary: No Musculoskeletal: No Neurologic: No Psychiatric: Yes (patient states he takes bipolar meds ) Reproductive: No Respiratory: No Social History Alcohol Use: No Tobacco Use: No Substance Use: No Allergies-Medications Allergies-Medications (Allergen,Severity, Reaction): Coded Allergies: Penicillin (Unverified Adverse Reaction, Mild, 03/14/16) Told since he had polio as a kid and exposed to penicillin multiple times, should not have penicillin later in life. Denies SOB/Rash/Swelling. Reported Meds & Prescriptions Reported Meds & Active Scripts Active Lorazepam 0.5 Mg Tab 0.5 Mg PO BID PRN Lisinopril 20 Mg Tab 20 Mg PO DAILY Oxygen tank (Oxygen) 1 Ea Tank 2 Liter RADHA.CANULA CONTINUOUS Oxygen Concentrator Portable Gaseous 2 L/min via Nasal Cannula Continuous For 99 months Cipro (Ciprofloxacin HCl) 500 Mg Tab 500 Mg PO Q12HR Take twice per day for 14 days. No antacids, PPIs, milk or milk products for an hour before or after Cipro. Reported Bishop Carbonate 300 Mg Cap 300 Mg PO TID ROS Review of Systems Except as stated in HPI: all other systems reviewed are Neg CBC/BMP: 04/10/16 0609 04/10/16 0609 Significant Findings Laboratory Tests Test 04/08/16 04/09/16 04/10/16 05:20 05:20 06:09 White Blood Count 12.8 TH/MM3 14.8 TH/MM3 13.7 TH/MM3 (4.0-11.0) (4.0-11.0) (4.0-11.0) Red Blood Count 3.63 MIL/MM3 3.91 MIL/MM3 3.55 MIL/MM3 (4.50-5.90) (4.50-5.90) (4.50-5.90) Hemoglobin 11.4 GM/DL 12.1 GM/DL 11.1 GM/DL (13.0-17.0) (13.0-17.0) (13.0-17.0) Hematocrit 34.9 % 37.8 % 34.6 % (39.0-51.0) (39.0-51.0) (39.0-51.0) Neutrophils (%) (Auto) 80.2 % 90.3 % 84.8 % (16.0-70.0) (16.0-70.0) (16.0-70.0) Neutrophils # (Auto) 10.2 TH/MM3 13.4 TH/MM3 11.7 TH/MM3 (1.8-7.7) (1.8-7.7) (1.8-7.7) Chloride Level 111 MEQ/L 118 MEQ/L 123 MEQ/L (98-107) (98-107) (98-107) Creatinine 1.56 MG/DL 1.42 MG/DL 1.39 MG/DL (0.60-1.30) (0.60-1.30) (0.60-1.30) Estimat Glomerular Filtration 44 ML/MIN (>89) 49 ML/MIN (>89) 50 ML/MIN (>89) Rate Random Glucose 112 MG/DL (74-106) Lymphocytes (%) (Auto) 4.1 % 7.7 % (9.0-44.0) (9.0-44.0) Lymphocytes # (Auto) 0.6 TH/MM3 (1.0-4.8) Sodium Level 146 MEQ/L 150 MEQ/L (136-145) (136-145) Carbon Dioxide Level 19.1 MEQ/L 18.4 MEQ/L (21.0-32.0) (21.0-32.0) Imaging Last Impressions Chest X-Ray 04/06/16 0000 Signed Impressions: Service Date/Time: Wednesday, April 06, 2016 09:42 - CONCLUSION: 1. Minimal left basilar streakiness consistent with atelectasis and/or infiltrate. Clinical correlation is recommended. Donald Mcgraw MD Brain MRI 04/05/16 0000 Signed Impressions: Service Date/Time: Tuesday, April 05, 2016 15:28 - CONCLUSION: 1. Mild cerebral atrophy. 2. No acute infarct, acute hemorrhage, mass effect or extra-axial fluid collections. Donald cMgraw MD Head CT 04/03/16 0000 Signed Impressions: Service Date/Time: Sunday, April 03, 2016 22:36 - CONCLUSION: Normal examination for a patient of this age. Harrison Causey MD PE at Discharge General: Elderly male in no acute distress. Heart: Regular rate and rhythm. No murmur. Lungs: Clear to auscultation bilaterally. No wheezes, rales, or rhonchi. Breathing is nonlabored. Abdomen: Soft, nontender, nondistended. Extremities: No lower extremity edema. Psych: Sleeping, but awakens easily. Pt update on day of discharge No complaints at this time. Resting comfortably in bed. 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 Bishop was held. Poison control was contacted. Serum lithium levels decreased throughout the hospitalization. Psychiatry was consulted and recommended continuing off of medications with probable slow restart of medications at the longterm facility. Neurology was consulted for evaluation of possible stroke. Patient was not felt to have had an acute CVA. Symptoms were felt to be secondary to seizure. He was started on Keppra by neurology. Patient had no further seizure activity during the hospitalization. He was started on IV fluids for acute kidney injury. Creatinine continued to improve throughout the hospitalization. 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 No signs of active infection were present at the time and no further antibiotics are recommended. He was started on fluconazole for oral thrush. The patient was noted to have a urinary tract infection. Urine culture positive for MRSA. He was reevaluated by infectious disease and started on Zyvox for 3 days. Pt Condition on Discharge: Stable Discharge Disposition: Discharge to SNF Discharge Time: > 30 minutes Discharge Instructions DIET: Follow Instructions for: Heart Healthy Diet Activities you can perform: Regular-No Restrictions Follow up Referrals: Neurology - 1 Week with Sachin Gr PhD MD PCP Follow-up - 1 Week Psychiatry Adult - 3-5 Days New Orders: UA C+S IF INDICATED - 3-5 Days New Medications: Levetiracetam (Keppra) 500 Mg Tab 1000 MG PO Q12HR Seizure Control #60 Ref 0 TAB Linezolid (Zyvox) 600 Mg Tab 600 MG PO Q12HR Stop date: 04/11/16 Infection #3 Ref 0 TAB Continued Medications: Amlodipine (Amlodipine) 5 Mg Tab 5 MG PO DAILY Blood Pressure Management #30 Ref 0 TAB Ipratropium-Albuterol Neb (Duoneb) 0.5-2.5 Mg/3 Ml Neb 1 NEBULE INH Q6HR NEB Breathing Treatment #120 Ref 0 NEBULE Pravastatin (Pravastatin) 40 Mg Tab 40 MG PO DAILY Cholesterol Management #30 Ref 0 TAB Tamsulosin (Tamsulosin) 0.4 Mg Cap 0.4 MG PO HS Manage Prostate Problems #30 Ref 0 CAP Trihexyphenidyl (Trihexyphenidyl) 2 Mg Tab 2 MG PO BID Parkinson Disease Mgmt #60 Ref 0 TAB Discontinued Medications: Bishop Carbonate (Bishop Carbonate) 300 Mg Tab 300 MG PO TID ON HOLD due to Levels Ref 0 TAB Lorazepam (Lorazepam) 1 Mg Tab 1 MG PO DAILY PRN ANXIETY Ref 0 TAB Nicotine Patch (Nicoderm CQ Patch) 21 Mg/24 Hr Patch 21 MG T-DERMAL DAILY Smoking Cessation #30 Ref 0 PATCH Olanzapine (Olanzapine) 5 Mg Tab 5 MG PO DAILY #30 Ref 0 TAB Gen Smith MD Apr 10, 2016 07:35
--- NOTE | 2016-04-10 07:36 | HHI.DCPOC ---
Discharge Care Plan Diagnosis: (1) Delirium due to another medical condition (2) Brantley toxicity (3) HLD (hyperlipidemia) (4) Encephalopathy (5) AWILDA (acute kidney injury) (6) Altered mental status (7) HTN (hypertension) (8) Bipolar disorder Goals to Promote Your Health * To prevent worsening of your condition and complications * To maintain your health at the optimal level Directions to Meet Your Goals Take your medications as prescribed Follow your dietary instruction Follow activity as directed Keep your appointments as scheduled Take your immunizations and boosters as scheduled If your symptoms worsen call your PCP, if no PCP go to Urgent Care Center or Emergency Room Smoking is Dangerous to Your Health. Avoid second hand smoke Call the 24-hour hour crisis hotline for domestic abuse at Gen Smith MD Apr 10, 2016 07:36
[2016-04-10] MEDS: DOCUSATE SODIUM 100 MG CAP PO SCH (08:36)
[2016-04-10] MEDS: levETIRAcetam 500 MG TAB PO SCH (08:36)
[2016-04-10] MEDS: amLODIPine BESYLATE 5 MG TAB PO SCH (08:36)
[2016-04-10] MEDS: PRAVASTATIN SOD 40 MG TAB PO SCH (08:36)
[2016-04-10] MEDS: LINEZOLID 600 MG TAB PO SCH (08:36)
[2016-04-10] MEDS: SODIUM CHLORIDE 0.9% FLUSH 5 ML FLUSH IV FLUSH SCH (08:37)
[2016-04-10] MEDS: PANTOPRAZOLE SODIUM 40 MG VIAL IV SCH (08:37)
[2016-04-10] MEDS: FLUCONAZOLE 100 MG PREMIX BAG 50 ML IV SCH (08:37)
[2016-04-10] MEDS: NS + KCL 20 MEQ INJ 1,000 ML IV SCH (08:56)
[2016-04-11] MEDS ORDERED: PANTOPRAZOLE SOD 40 MG DELAYED RELEASE TAB PO SCH (09:00)
== END 2016-04-10 12:15 | DRG 917 ==
LOC: NEPC 22:18 → NEDA 04-04 02:09 → NEDH 04-04 06:21 → HCIS 04-04 15:37
PROVIDERS: ADMIT Family Medicine; ATTEND Family Medicine
DX: T43.591A Poisoning by other antipsychotics and neuroleptics, accidental (unintentional), initial encounter (principal); G92 Toxic encephalopathy; N17.9 Acute kidney failure, unspecified; E87.0 Hyperosmolality and hypernatremia; R13.10 Dysphagia, unspecified; F05 Delirium due to known physiological condition; N39.0 Urinary tract infection, site not specified; B37.0 Candidal stomatitis; E78.5 Hyperlipidemia, unspecified; F31.9 Bipolar disorder, unspecified; B95.62 Methicillin resistant Staphylococcus aureus infection as the cause of diseases classified elsewhere; D64.9 Anemia, unspecified; E86.0 Dehydration; G40.909 Epilepsy, unspecified, not intractable, without status epilepticus; I10 Essential (primary) hypertension; R31.9 Hematuria, unspecified; S61.452A Open bite of left hand, initial encounter; W54.0XXA Bitten by dog, initial encounter; Y92.9 Unspecified place or not applicable; Z87.891 Personal history of nicotine dependence
CPT/HCPCS: 36600; 70450; 70551; 71010; 80048; 80053; 80178; 80307; 80320; 80329; 81001; 82140; 82435; 82550; 82565; 82607; 82728; 82746; 82805; 82947; 82948; 83540; 83550; 83605; 83735; 83930; 83935; 84100; 84132; 84295; 84300; 84439; 84443; 84484; 84520; 85025; 85027; 85384; 85610; 85730; 86403; 86850; 86900; 86901; 87086; 87147; 87186; 93005; 94003; 94668; 95819; 96360; 96361; C9113; G0480; J1450; J1644; J1953; J3480; J7030; J7042; J7070